=== PATIENT | male | born 1970 | race Caucasian/White ===

== ENCOUNTER 2018-08-25 20:43 | Inpatient (IN) | payer OTHER ==
[~2018-08-25] VITALS: Ht 182.8 cm; Wt 92.3 kg
--- NOTE | ~2018-08-25 | PR ---
[place], [place] PROGRESS NOTE NAME: JESSICA GALVIN UNIT #: [id number] ROOM: 421 DOCTOR: JAYCE SANCHEZ MD,SEAMUS BIRTHDATE: [birth year] DOS: 09/02/2018 PULMONARY CRITICAL CARE EVALUATION AND MANAGEMENT SUBJECTIVE: The patient remains on mechanical ventilator, has bronchoscopy done yesterday with a large volume of purulent secretion removed from the endobronchial tree. He has not been noted with any ongoing hemodynamic instability at the present time. The patient was continued 45% oxygen supplementation on the mechanical ventilator as well. The feeding was continued by NG tube, which seem to be well tolerated. Antibiotic was continued as well for the acute pneumonia management. The patient is currently intubated and sedated. The neuromuscular blocking agent was discontinued after completion 48 hours of duration. The oxygen requirement has been noted decreased, the PEEP was continued, 10 cm of water. OBJECTIVE: VITAL SIGNS: The vital signs of the patient, temperature is noted completely normal in the last 24 hours. The respiratory rate was recorded as 37-26. Heart rate of 92-104. The blood pressure of 130/90-135/108. Pulse oxygen saturation is recorded as 95% saturation on 45% oxygen. HEENT: On examination, the patient is currently intubated and remains on mechanical ventilator. Head was atraumatic. Eyes nonicterus. NECK: Supple. CARDIOVASCULAR SYSTEM: S1, S2 audible. LUNGS: Noted with crackles at the right lower lung. There was no wheezing. ABDOMEN: Soft, nontender. Bowel sounds present. EXTREMITIES: Noted without any significant edema. MUSCULOSKELETAL: Without any acute deformities. CENTRAL NERVOUS SYSTEM: The patient is currently sedated. LABORATORY DATA: CBC this morning, WBC count is 7.1, hemoglobin is 12.9, and platelet count is normal. The arterial blood gas this morning on 45% oxygen, pH of 7.48, pCO2 of 35, and pO2 of 123. The culture of the bronchial washing noted normal miya, final results are pending. Gram stain of the bronchial washing of yesterday, many white blood cells, moderate epithelial cells, no organisms seen. CMP this morning, BUN is normal, creatinine is normal, glucose is 112, and potassium is 3.3. Albumin is 2.5. Phosphorus remains normal. The AST and ALT was noted still abnormal, but improving from admission. IMPRESSION: 1. The patient with acute pneumonia with acute respiratory distress syndrome bilaterally, status post bronchoscopy. 2. The patient with alcohol dependence, alcohol withdrawal. 3. The patient with nicotine dependence. 4. Refeeding syndrome that has been resolving. 5. Mild hypokalemia. 6. The patient with overall debility certainly would be noted at the present time. 7. Mild respiratory alkalosis as well. [place], [place] PROGRESS NOTE NAME: JESSICA GALVIN UNIT #: [id number] ROOM: 421 DOCTOR: JAYCE SANCHEZ MD,SEAMUS BIRTHDATE: [birth year] PLAN OF MANAGEMENT: Continue sedation with use of the propofol. Supplementation of the electrolytes will be continued. Continue Neutra-Phos as the phosphorus level was noted currently normal for the current hypophosphatemia related to refeeding syndrome. Bronchodilator to be continued. Antibiotic spectrum will be changed based on all the culture results. Discontinuation of the IV fluid as well. Bronchodilators to be continued as well. Continue other ventilator bundle management as well. Decrease the oxygen supplementation at this time from 45% to 40% oxygen supplementation, weaning could be considered to be started from tomorrow. The respiratory rate will be also decreased. Other plan of management and care plan changes to be made based on progression of the illness. Oxygen supplementation will be started decreasing if the patient tolerated the current changes on the mechanical ventilation then tomorrow prior to the consideration for the weaning. Mental status assessment to be done with sedation vacation by the nursing staff. Total time in pulmonary critical care evaluation and management was 39 minutes. SEAMUS EDUARDO MD CM:PNTRANS [id number] SEAMUS SANCHEZ MD 10/19/18 0914 interface
--- NOTE | ~2018-08-25 | PR ---
[place], [place] PROGRESS NOTE NAME: JESSICA GALVIN UNIT #: [id number] ROOM: 421 DOCTOR: SEAMUS EDEN MD BIRTHDATE: [birth year] DOS: 09/06/2018 PULMONARY PROGRESS NOTE SUBJECTIVE: The patient independently seen and examined in [id number] encounter, history was confirmed. Physical examination performed. The labs were reviewed. Assessment and management today was personally completed. Note done by the medical appointment scheduler was approved as well. He has been noted comfortable on this setting this morning on the side of the bed. Denies any symptoms of coughing, sputum expectoration, chest pain, fever, or chills. Denies symptoms of hemoptysis. OBJECTIVE: VITAL SIGNS: Within normal temperature, respiratory rate 20, heart rate 87, blood pressure 135/70. Pulse oxygen saturation on room air was 100% saturation. HEENT: Head was atraumatic. Eyes nonicterus. NECK: Supple. CARDIOVASCULAR: S1, S2 audible. LUNGS: Without any wheezing or crackles. ABDOMEN: Soft, nontender. Bowel sounds present. EXTREMITIES: No acute change. LABORATORY DATA: BMP: Potassium 3.1, otherwise normal BMP. IMPRESSION: 1. The patient has been noted with progressive resolution of the acute respiratory failure. Currently, he does not require any oxygen supplementation. 2. History of alcohol withdrawal and delirium tremens, which has been already resolved. PLAN OF TREATMENT: No changes from the pulmonary standpoint at this time, the patient could be considered for discharge. Home setting whenever desired and agreed upon by the primary care physician. [place], [place] PROGRESS NOTE NAME: JESSICA GALVIN UNIT #: [id number] ROOM: 421 DOCTOR: SEAMUS EDEN MD BIRTHDATE: [birth year] SEAMUS EDUARDO MD CM:PNTRANS [id number] SEAMUS SANCHEZ MD 09/07/18 0011 interface
--- NOTE | ~2018-08-25 | PR ---
[place], [place] PROGRESS NOTE NAME: JESSICA GALVIN UNIT #: [id number] ROOM: 421 DOCTOR: LEONELA DE LA ROSA DO BIRTHDATE: [birth year] DOS: 09/06/2018 PULMONARY PROGRESS NOTE INTERVAL HISTORY: The patient states that he is doing much better. He is breathing much better. He thinks it is all your help and states that he will complete his rehabilitation and no longer drink alcohol. The patient denied any shortness of breath, chest pain, productive cough, fevers, or chills. OBJECTIVE: VITAL SIGNS: The patient's 97.9, pulse 87, respiratory rate 16, blood pressure 120/60. The patient is 100% on room air. HEENT: Normocephalic, atraumatic. Eyes nonicteric. NECK: Supple, nontender, trachea midline. CARDIOVASCULAR: S1, S2 audible, regular rate and rhythm. LUNGS: Clear to auscultation bilaterally. ABDOMEN: Soft, nontender. EXTREMITIES: No clubbing, cyanosis or edema. NEUROLOGIC: No focal neurologic deficits. Cranial nerves 2-12 grossly intact. ASSESSMENT: 1. Acute respiratory failure. 2. Gram-negative pneumonia. 3. Alcohol withdrawal. PLAN: Encourage ambulation. Continue bronchodilator therapy while the patient is inpatient. The patient could be discharged from pulmonary standpoint on 3 additional days of levofloxacin 750 mg. Quincy De La Rosa DO SEAMUS EDUARDO MD CM:JULES [phone] [id number] LEONELA DE LA ROSA DO 09/06/181944 interface
--- NOTE | ~2018-08-25 | PR ---
[place], [place] PROGRESS NOTE NAME: JESSICA GALVIN UNIT #: [id number] ROOM: [place] [address] DOCTOR: PHD MINISTERIO LEVINE BIRTHDATE: [birth year] DOS: 08/28/2018 SUMMARY: The patient is sedated and intubated. I will continue to follow and evaluate him once he is more appropriate. Savana Levine PhD CM:JULES [phone] PHD MINISTERIO LEVINE 08/29/18 1853 interface
--- NOTE | ~2018-08-25 | CON ---
[place], [place] REPORT OF CONSULTATION NAME: JESSICA GALVIN UNIT #: [id number] ROOM: [place] [address] DOCTOR: MIKAELA, PHD MINISTERIO BIRTHDATE: [birth year] DOS: 08/30/2018 The patient is intubated and is not able to be assessed. I have called the [facility] to pass this information along for Monday and coverage in case the patient improves before Monday when I return. Savana Levine, PhD CM:CONSTR:REPORT OF CONSULTATION 1622 08/30/18 2253 interface
--- NOTE | ~2018-08-25 | PR ---
[place], [place] PROGRESS NOTE NAME: JESSICA GALVIN UNIT #: [id number] ROOM: 421 DOCTOR: JAYCE SANCHEZ MDSEAMUS BIRTHDATE: [birth year] DOS: 08/29/2018 PULMONARY CRITICAL CARE MANAGEMENT SUBJECTIVE: The patient was seen on the date of 08/29/2018. He has been noted with marked decline in his respiratory status in the last 24 hours. He started with having hypotension gradually with severe oxygen desaturation and also noted tachycardia and temperature elevation started last evening. The patient was currently noted with significant tachypnea. The oxygen requirement had to be increased up to 80% as the patient was assessed this morning at about 8:45 a.m. He has been sedated with intravenous Diprivan. The patient has been just ordered the antibiotic by the medical data entry clerk this morning, which has not been administered. He has been also noted increased secretion production with endotracheal tube, which is described to me by the nursing staff. REVIEW OF SYSTEMS: Certainly could not be done. The patient has been getting intravenous fluids at 125 mL, normal saline per hour in the last few hours. Blood pressure systolic noted about 88 this morning. PHYSICAL EXAMINATION: GENERAL: The patient is currently intubated, noted on mechanical ventilator, noted with tachypnea, respiratory rate about 30 beats per minute, assist control, volume control, mechanical ventilation, PEEP of 5 cm of water at the time of the assessment. OBJECTIVE: VITAL SIGNS: For the patient, which recorded blood pressure 86/60-113/70 earlier. The temperature of the patient noted as 101 degrees Fahrenheit. The respiratory rate of the patient range between 26-18, heart rate of 130-114, sinus tachycardia. Intake in the last 24 hours was 2.130 liters, the output was noted at 500 mL total in 24 hours. The last 8 hours output was only 150 mL. The pulse oxygen saturation was recorded as 80 percent saturation of oxygen. HEENT: Examination shows head was atraumatic. Eyes nonicterus. NECK: Supple. CARDIOVASCULAR: The patient currently intubated, orogastric tube. Head was atraumatic. Eyes nonicterus. NECK: Supple. CARDIOVASCULAR: S1, S2 is audible. LUNGS: The patient was noted with decreased breath sounds in the lungs bilaterally with crackles of the lungs. ABDOMEN: Soft, nontender. Bowel sounds present. EXTREMITIES: Noted without any edema. MUSCULOSKELETAL: Without any acute deformities. SKIN: No lesions or rashes. CENTRAL NERVOUS SYSTEM: The patient is currently sedated. LABORATORY DATA: CMP on 08/29/2018, BUN of 19, creatinine normal, glucose 123, potassium 3.1. AST and ALT still noted mildly elevated. CBC of the patient this morning, WBC count normal, hemoglobin 14, hematocrit 45.0, platelet count were normal. The culture of the endotracheal aspirate 513, normal miya. [place], [place] PROGRESS NOTE NAME: JESSICA GALVIN UNIT #: [id number] ROOM: 421 DOCTOR: JAYCE SANCHEZ MD,[facility] BIRTHDATE: [birth year] Arterial blood gas this morning at 8 o'clock, pH of 7.38, pCO2 of 41, pO2 82.4. Chest x-ray that was completed review for this patient shows evidence of pulmonary infiltration noted significantly in the right lung. IMPRESSION: 1. The patient with acute pneumonia that has occurred. The patient was intubated, noted on mechanical ventilation within the last 24 hours with acute severe sepsis as considered. Possibility of ARDS at this time cannot be completely excluded and remains in consideration. 2. The patient with a history of alcohol use as well. 3. The patient with elevation of temperature as well. 4. Abnormal LFTs as well. 5. History of illicit drug use as well. 6. Electrolyte imbalance. 7. Hyperkalemia would be considered possibility of refeeding syndrome. PLAN OF MANAGEMENT: The patient has been started immediately on intravenous fluids on 2 liters of intravenous fluid will be given for 2 hours monitoring the urinary output and the perfusion to other organ and the blood pressure. If necessary, vasopressor will be added to treatment Levophed would be the drug of choice. Continue sedation at the present time. Buckley cultures, the patient has been ordered. Strategy for the patient on mechanical ventilation will be changed to further volume, lung-protective strategy over the ARG management protocol. Monitoring of the oxygenation as well with continuation of the DVT prophylaxis and other ventilator bundle management. Nutrition support for the patient will be continued. Management of the refeeding syndrome with supplementation of electrolytes as well. Multilumen catheter will be ordered to be inserted for the use of vasopressor if becomes necessary. The patient will be started on IV vancomycin and Zosyn for the hospital-acquired infection and possible consideration of ventilator-associated pneumonia until the culture results will be known and de-escalation will be done accordingly. Usual care or oral therapy, plan of management, additional treatment changes will be ordered accordingly. Pulmonary critical care evaluation and management, total time was 40 minutes. [place], [place] PROGRESS NOTE NAME: JESSICA GALVIN UNIT #: [id number] ROOM: 421 DOCTOR: SEAMUS EDEN MD BIRTHDATE: [birth year] SEAMUS EDUARDO MD CM:JULES [id number] SEAMUS SANCEHZ MD 10/19/18 0909 interface
--- NOTE | ~2018-08-25 | EKG ---
[place], [place] ELECTROCARDIOGRAM REPORT NAME: JESSICA GALVIN UNIT #: [id number] ROOM: [place] [address] DOCTOR: AFTAB DRAFT REPORT BIRTHDATE: [birth year] [facility] Test Date: 2018-08-31 Test Time: 11:18:15 Pat Name: JESSICA GALVIN Department: Room: [place] [address] 1 Gender: M Code Enforcement Supervisor: Sariah Blunt : 1970 Requested By: SEAMUS SANCHEZ Order Number: [id number] Reading MD: Seamus Saucedo MD Measurements Intervals [place] Rate: 104 P: 83 NC: 137 QRS: 72 QRSD: 87 T: 42 QT: 332 QTc: 437 Interpretive Statements Sinus tachycardia Borderline low voltage, extremity leads Compared to ECG 08/25/2018 21:38:50 Myocardial infarct finding no longer present Electronically Signed On 09-01-2018 8:52:18 PDT by Seamsu Saucedo MD CM:EKGRPT:ELECTROCARDIOGRAM REPORT [id number] SEAMUS SNACHEZ MD EPIPHANY DRAFT REPORT SEAMUS SANCHEZ MD
--- NOTE | ~2018-08-25 | PR ---
[place], [place] PROGRESS NOTE NAME: JESSICA GALVIN UNIT #: [id number] ROOM: [place] [address] DOCTOR: JAYCE SANCHEZ MD,SEAMUS BIRTHDATE: [birth year] DOS: 08/30/2018 ADDENDUM PLAN OF TREATMENT: High-riding endotracheal tube was noted, which was advanced to about 4 cm to keep at the appropriate level. SEAMUS EDUARDO MD CM:PNTRANS [id number] [phone] SEAMUS SANCHEZ MD 08/31/18 1026 MARLO VARMA MIS.R
--- NOTE | ~2018-08-25 | EKG ---
[place], [place] ELECTROCARDIOGRAM REPORT NAME: JESSICA GALVIN UNIT #: [id number] ROOM: [place] [address] DOCTOR: AFTAB DRAFT REPORT BIRTHDATE: [birth year] [facility] Test Date: 2018-08-25 Test Time: 21:38:50 Pat Name: JESSICA GALVIN Department: Room: [place] [address] Gender: M Mobility Developer: Francisco Medellin : 1970 Requested By: JOHN PAUL JONES Order Number: [id number] Reading MD: Alyssa Pitts MD Measurements Intervals [place] Rate: 117 P: 60 PA: 146 QRS: 67 QRSD: 81 T: 31 QT: 333 QTc: 465 Interpretive Statements Sinus tachycardia Low voltage, extremity leads Probable anteroseptal infarct, old Electronically Signed On 08-27-2018 14:41:52 PDT by Alyssa Pitts MD CM:EKGRPT:ELECTROCARDIOGRAM REPORT [id number] JOHN PAUL JONES DO EPIPHCHRISTIANO DRAFT REPORT JOHN PAUL JONES DO
--- NOTE | ~2018-08-25 | CON ---
[place], [place] REPORT OF CONSULTATION NAME: JESSICA GALVIN UNIT #: [id number] ROOM: [place] [address] DOCTOR: PHD MINISTERIO LEVINE BIRTHDATE: [birth year] DOS: 09/04/2018 HISTORY OF PRESENT ILLNESS: The patient is a 48-year-old male, referred by the hospitalist with concerns for suicidal ideation. The patient has a history of alcohol abuse. He is homeless and not . He does not have any children. He is drinking about a fifth of vodka daily. He started when he was 15 and his longest period of sobriety is 10 months. He has participated in several inpatient treatment programs in the past and is currently undergoing alcohol counseling at [facility] and also follows with a counselor and psychiatrist through [facility]. He denies illegal drug use. PAST MEDICAL HISTORY: Alcohol dependence, nicotine dependence, hypertension, GERD, hyperchloremia, insomnia, macrocytosis without anemia, obesity, mood disorder, prediabetes and sinus tachycardia. MEDICATIONS: Haldol, Geodon, Diprivan, Ventolin, Protonix, Seroquel, Desyrel, Lamictal, folic acid, thiamine, Theragran, Lovenox, Zofran, Dulcolax, Senokot, Imodium, nicotine, Motrin, Tylenol, Vistaril, Bentyl, Robaxin and Zosyn. NEUROLOGIC: The patient was lying in bed in no apparent distress. He was awake, alert and oriented to person, place and time. He can name the current president and the past president. Mood was depressed and affect was restricted in range. He firmly denied suicidal and homicidal ideation, plan, and intent. He states that he was not trying to kill himself when he was drinking prior to admission. He states that the severity of his medical decline was a "wakeup call" and he is very treatment-motivated at this time. Speech and language are within normal limits conversationally. Thought process was goal directed. Thought content was negative for hallucinations and delusions. Insight and judgment appeared fair. The patient apparently had a bed waiting for him at [facility] for inpatient alcohol treatment when he left the Emergency Room against medical advice and drank. The patient is hoping to continue to follow with [facility]. His parents are also hoping that he can follow up somewhere in the [facility] and then bring him home, will send to [place] once he completes the treatment program. DIAGNOSES: Alcohol use disorder, bipolar disorder. RECOMMENDATIONS: The patient does not appear to be a current risk to himself. He convincingly denied suicidal ideation. He states that he wants to pursue inpatient alcohol treatment, especially given how severe his withdrawal was during this hospitalization. Thank you very much for this consultation. [place], [place] REPORT OF CONSULTATION NAME: JESSICA GALVIN UNIT #: [id number] ROOM: [place] [address] DOCTOR: MIKAELA PHD MINISTERIO BIRTHDATE: [birth year] Savana Levine, PhD CM:CONSTR:REPORT OF CONSULTATION 1644 09/05/18 0320 interface
--- NOTE | ~2018-08-25 | PR ---
[place], [place] PROGRESS NOTE NAME: JESSICA GALVIN UNIT #: [id number] ROOM: [place] [address] DOCTOR: JAYCE SANCHEZ MD,SEAMUS BIRTHDATE: [birth year] DOS: 08/30/2018 PULMONARY PROGRESS NOTE SUBJECTIVE: The patient was seen and examined on the date of 08/30/2018 in Intensive Care Unit, remains intubated. The patient has been given intervenous fluids and was noted with improvement in hypertension with the fluid, did not require any vasopressor therapy. His urinary output was also noted with gradual improvement as well. The feeding was continued, which was well tolerated, assist control, volume control, mechanical ventilation was noted. He has been noted tachypnea and distress at times with current mechanical ventilation. PEEP was continued at 12 cm water from yesterday. Oxygen saturation was noted recorded including oxygen supplementation this morning. He was continued with the tube feeding as well as atrophic feeding. OBJECTIVE: GENERAL: Sedated, intravenous Diprivan high dose. Versed was also given p.r.n. A 48-year-old white male patient currently intubated, noted on mechanical ventilation. Orogastric tube is in place. VITAL SIGNS: For the patient, highest temperature 101.8 degrees Fahrenheit, respiratory rate 24-34, heart rate 108-119, blood pressure 136/82-112/68. Intake was a total of 6.22 liters, output 1075 Ml, positive 5.149 liters. Pulse oxygen saturation 94% saturation noted. HEENT: Examination shows head was atraumatic. Eyes nonicterus. NECK: Supple. CARDIOVASCULAR: S1, S2 is audible. LUNGS: Noted patient with decreased breath sounds in the lungs in general. There was no wheezing heard. ABDOMEN: Soft, nontender, bowel sounds present. EXTREMITIES: Noted with mild edema. MUSCULOSKELETAL: Without any acute deformities. CENTRAL NERVOUS SYSTEM: At this time, is sedated. He was also started on IV Diprivan drip and also getting the intravenous propofol. LABORATORY DATA: Laboratory data, which was reviewed. Arterial blood gas that was done at 10:30, pH of 7.35, pCO2 of 38, pO2 88 on 80% oxygen. CPK was noted as normal yesterday. Arterial blood gas repeated yesterday afternoon, pH of 7.34, pCO2 of 37, pO2 105 on 80% oxygen with PEEP increased to 12 cm water. CMP of the patient this morning, glucose 160, BUN normal, creatinine was normal. AST, ALT was still noted abnormal, but gradual reduction noted. CBC this morning, WBC count 10.2, hemoglobin 12.6, platelet count 123,000. The endotracheal aspirate, Gram stain, many white blood cells, many gram-negative bacilli, few gram-positive cocci in pairs and chains. The patient normal miya preliminary. Arterial blood gas, pH of 7.37, pCO2 of 36, pO2 90.2 on 65% oxygen. The chest x-ray done this morning shows high riding endotracheal tube about 7-8 cm above the mitchel level. Interstitial marking bilateral lower lobe infiltration was seen. Arterial blood gas repeated after additional changes in the mechanical ventilation done, pH of 7.22, pCO2 of 59, pO2 of 72.8. IMPRESSION: [facility], [place] PROGRESS NOTE NAME: JESSICA GALVIN UNIT #: [id number] ROOM: [place] [address] DOCTOR[facility] [birth year] 1. Acute severe sepsis at this time. 2. Acute pneumonia, which would be considered as hospital-acquired pneumonia, possibly related to the aspiration as well and cannot be characterized as a ventilator-associated pneumonia as the mechanical ventilator by definition done less than 24 hours. 3. Abnormal LFTs related to his chronic alcohol use. 4. Cord withdrawal. 5. The patient requiring high amount of sedation from different medications as well. 6. ARDS was also noted bilateral pulmonary infiltration by definition. 7. High oxygen requirement as well. 8. Refeeding syndrome as well, which has been corrected with electrolyte imbalance. PLAN OF MANAGEMENT: The patient will be continued on broad spectrum intravenous antibiotic and culture results are known. Intravenous fluids use. Given 40 mg IV Lasix. Bedside adjustment of mechanical ventilation done for different modes of mechanical ventilation. Increasing the incremental PEEP up to 24 cm water. The patient noted significant shunting and the best PEEP noted about 10-12 cm of water, which will be continued with oxygen supplementation 70% that was gradually decreased with the repeat arterial blood gases. Arterial line placement was ordered as well. Bronchodilator to be continued. 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 The low dose of Diprivan and low dose of Versed could be used. Continue other therapy and plan of management as well. Monitor culture results. Other additional treatment changes will be made based on progression of the illness. Usual care, other therapy, plan of management, care plan of treatment and other therapies and care. Usual medical milieu therapy, plan of management. Total time spent for the patient in pulmonary critical care management at the bedside for his ARDS, respiratory failure and others, was 90 minutes. PLAN OF TREATMENT: High-riding endotracheal tube was noted, which was advanced to about 4 cm to keep at the appropriate level. [place], [place] PROGRESS NOTE NAME: JESSICA GALVIN UNIT #: [id number] ROOM: [place] [address] DOCTOR: SEAMUS EDEN MD BIRTHDATE: [birth year] SEAMUS EDUARDO MD CM:PNTRANS [phone] SEAMUS SANCHEZ MD 08/31/18 1031 interface
--- NOTE | ~2018-08-25 | CON ---
[place], [place] REPORT OF CONSULTATION NAME: JESSICA GALVIN UNIT #: [id number] ROOM: [place] [address] DOCTOR: MIKAELA, PHD MINISTERIO BIRTHDATE: [birth year] DOS: 08/27/2018 The patient was not available for an evaluation due to being intubated. I will follow up with him tomorrow. Savana Levine, PhD CM:CONSTR:REPORT OF CONSULTATION 1719 08/28/18 0353 interface
--- NOTE | ~2018-08-25 | PR ---
[place], [place] PROGRESS NOTE NAME: JESSICA GALVIN UNIT #: [id number] ROOM: 421 DOCTOR: TD MARIEDIANNENATHAN BIRTHDATE: [birth year] DOS: 09/05/2018 PULMONARY PROGRESS NOTE SUBJECTIVE: The patient states that he feels much better today. The patient was moved out this morning on to the general medical floor. The patient states that he is able to walk around the room. The patient states that his breathing is at baseline. The patient states that he has plans to go to his mother's house. The patient states that he will continue to not drink alcohol. The patient denies any chest pain, shortness of breath, nausea or vomiting. OBJECTIVE: VITAL SIGNS: Temperature is 98.8, pulse 87, respiratory rate 20, blood pressure is 118/66, pulse ox is 93% on room air. HEENT: Normocephalic, atraumatic. Eyes nonicteric. NECK: Supple, nontender. Right IJ is present. CARDIOVASCULAR: S1, S2 audible. LUNGS: Clear to auscultation bilaterally. ABDOMEN: Soft, nontender, bowel sounds present. EXTREMITIES: No acute changes. MUSCULOSKELETAL: Without acute deformities. CENTRAL NERVOUS SYSTEM: No focal neurologic deficits. Cranial nerves 2-12 grossly intact. The patient is able to ambulate without difficulty. SKIN: No lesions or rashes. LABORATORY DATA: The patient did not have labs today. ASSESSMENT: 1. Improving acute hypoxic respiratory failure. 2. Resolution of alcohol withdrawal. 3. Resolving acute gram-negative pneumonia secondary to aspiration. 4. Resolution of tachycardia. 5. Morbid obesity. 6. Tobacco abuse. 7. Abnormal LFTs with transaminitis, most likely secondary to chronic alcohol abuse. PLAN OF MANAGEMENT: The patient is to have the right IJ removed today. This will be removed by the nurses. The patient should be encouraged to ambulate. The patient's antibiotics will all be discontinued and the patient will be started on p.o. Levaquin 750 mg daily. The patient will be continued on this today and tomorrow while inpatient. The patient will be discharged on 3 additional days of p.o. Levaquin. The patient is stable from pulmonary standpoint for discharge tomorrow. Quincy De La Rosa DO [place], [place] PROGRESS NOTE NAME: JESSICA GALVIN Vitor UNIT #: [id number] ROOM: [place] DOCTOR: LEONELA DE LA ROSA DO BIRTHDATE: [birth year] SEAMUS EDUARDO MD CM:PNDEBORA [id number] LEONELA DE LA ROSA DO 09/05/18 1740 interface
--- NOTE | ~2018-08-25 | PR ---
[place], [place] PROGRESS NOTE NAME: JESSICA GALVIN UNIT #: [id number] ROOM: 421 DOCTOR: JAYCE SANCHEZ MD,SEAMUS BIRTHDATE: [birth year] DOS: 09/07/2018 PULMONARY PROGRESS NOTE SUBJECTIVE: The patient was independently seen and examined in [id number] encounter, history was confirmed. Physical examination performed. Labs were reviewed. Note done by the medical records assistant was approved. The patient's assessment and management today was personally completed. The patient has been currently noted comfortable at this time, resting, sitting on the chair this morning in his room. He was not reporting any symptoms of coughing, chest pain, shortness of breath, fever, or chills. Denies symptoms of hemoptysis. OBJECTIVE: VITAL SIGNS: For the patient, which are recorded showed the temperature noted as normal, respiratory rate 20, heart rate of 97, blood pressure 118/84. Pulse oxygen saturation recorded as 98% at rest on room air. HEENT: Examination shows head was atraumatic. Eyes nonicterus. NECK: Supple. CARDIOVASCULAR: S1, S2 is audible. LUNGS: The patient was noted without any wheeze or crackles. ABDOMEN: Soft, nontender. Bowel sounds present. EXTREMITIES: Noted without any acute edema. MUSCULOSKELETAL: The patient noted without any acute deformities. IMPRESSION: 1. The patient with resolved acute respiratory failure. 2. Resolution of acute pneumonia, noted progressively and gradually. 3. Resolution of alcohol withdrawal. PLAN OF TREATMENT: No change in pulmonary standpoint. Discharge planning per primary care attending. No change in treatment needs to be done today. SEAMUS EDUARDO MD CM:PNTRANS [phone] SEAMUS SANCHEZ MD 10/19/18 0915 interface
--- NOTE | ~2018-08-25 | PR ---
[place], [place] PROGRESS NOTE NAME: JESSICA GALVIN UNIT #: [id number] ROOM: 421 DOCTOR: JAYCE SANCHEZ MD,SEAMUS BIRTHDATE: [birth year] DOS: 08/31/2018 PULMONARY AND CRITICAL CARE EVALUATION AND MANAGEMENT SUBJECTIVE: The patient remains on mechanical ventilator, stable. The mechanical ventilation is continued with oxygen supplementation, which has been used at this time as 60% oxygen on mechanical ventilator and saturating well. Low-grade fever noted. He has been noted with a moderate amount of endotracheal secretion, which was suctioned out frequently by the nursing staff and respiratory staff. He has been noted without any acute hemodynamic instability. Mild sinus tachycardia noted as well with fever, which is noted with rectal temperature elevation. He has been continued on intravenous antibiotic, broad spectrum. The cultures were monitored. The feeding was continued, tolerated with PulmoCare. OBJECTIVE: VITAL SIGNS: Which were recorded showed the temperature was noted as 99.3 degrees Fahrenheit-101.4 degrees Fahrenheit, respiratory rate of 34-28, heart rate of 116-122, blood pressure 105/65-113/70. Pulse oxygen saturation recorded as 94%-99% saturation on 60% oxygen. HEENT: Examination shows head is atraumatic. Eyes nonicterus. NECK: Supple. CARDIOVASCULAR: S1 and S2 audible. LUNGS: Noted with moderate decreased breaths. There were no wheezing or crackles. ABDOMEN: Soft, nontender. Bowel sounds present. EXTREMITIES: Noted without any significant edema. MUSCULOSKELETAL: Without acute deformities. CENTRAL NERVOUS SYSTEM: At this time, the patient is paralyzed. LABORATORY DATA: Arterial blood gas this morning - pH of 7.38, pCO2 of 44.6, pO2 of 76.9. CBC - WBC count of 9.6, hemoglobin 11.3, hematocrit 37.5, platelet count 146,000. Magnesium was noted as 2.2, phosphorus 1.9. CMP that is done this morning noted as glucose 125, BUN and creatinine normal, potassium 3.4, AST and ALT still noted abnormal but slowly improving. CBC - WBC count 9.6, hemoglobin 11.8, hematocrit 37.5. DIAGNOSTIC DATA: Chest x-ray: Endotracheal tube is noted in appropriate place at this time, NG tube in the stomach, lower lobe area of consolidation and infiltration seen. IMPRESSION: 1. The patient with acute respiratory distress syndrome with acute pneumonia, which is hospital acquired. 2. The patient with refeeding syndrome with electrolyte imbalance, hypophosphatemia and hypokalemia. 3. The patient with alcohol withdrawal history as well. 4. Sinus tachycardia as well. 5. Excessive secretion production from the endotracheal tube. [place], [place] PROGRESS NOTE NAME: JESSICA GALVIN UNIT #: [id number] ROOM: 421 DOCTOR: SEAMUS EDEN MD BIRTHDATE: [birth year] PLAN OF MANAGEMENT: Supplementation of phosphorus will be started from the orogastric tube. The patient will be planned for bronchoscopy tomorrow morning. No changes in antibiotic. Follow up the culture results of endotracheal aspirate as well. Additional treatment changes will be done based on progression of the illness. Culture has not been updated today as yet from the endotracheal aspirate. Deescalation of antibiotic with the available culture results. Endotracheal tube, which was noted high riding already corrected. Continue all the ventilator bundle management. Paralytic agents will be ending tomorrow after 48 hours for the ARDS management. Total time in pulmonary and critical care evaluation and management was 35 minutes. SEAMUS EDUARDO MD CM:PNTRANS [phone] SEAMUS SANCHEZ MD 10/19/18 0911 interface
--- NOTE | ~2018-08-25 | PR ---
[place], [place] PROGRESS NOTE NAME: JESSICA GALVIN UNIT #: [id number] ROOM: 421 DOCTOR: SEAMUS EDEN MD BIRTHDATE: [birth year] DOS: 09/05/2018 PULMONARY PROGRESS NOTE SUBJECTIVE: The patient independently seen and examined, [id number] encounter, history was confirmed. Physical examination performed. Labs were reviewed. Note done by the emergency medical technician/driver was approved as well. The patient assessment and managed for today's visit were personally completed. He has been doing very well at this time, was transferred to the medical floor at this time. He has been currently noted without any acute distress. Denies symptoms of coughing, chest pain, sputum expectoration, ambulated at his own will intermittently. There were no symptoms of chest pain. There was no fever. OBJECTIVE: VITAL SIGNS: For the patient, normal temperature, respiratory rate 20, heart rate 87, blood pressure 118/66. Pulse oxygen saturation recorded as 93% saturation at rest on room air. HEENT: Examination shows head was atraumatic. Eyes nonicterus. NECK: Supple. CARDIOVASCULAR: S1, S2 is audible. LUNGS: The patient was noted clear bilaterally. ABDOMEN: Soft, nontender. Bowel sounds present. EXTREMITIES: No acute change. IMPRESSION: 1. Progressive and gradual resolution of the acute respiratory failure at the present time, not needing any oxygen supplementation. 2. Resolving acute gram-negative pneumonia, hospital-acquired pneumonia. 3. Resolution of sepsis. 4. History of chronic alcohol use with alcohol withdrawal, which has been improved. PLAN OF MANAGEMENT: Encouraged the patient continue ambulation, continue bronchodilator therapy, plan of management as in progress. DISCHARGE PLANNING: The patient could be started potential discharge in the morning from the pulmonary standpoint. [place], [place] PROGRESS NOTE NAME: JESSICA GALVIN UNIT #: [id number] ROOM: 421 DOCTOR: SEAMUS EDEN MD BIRTHDATE: [birth year] SEAMUS EDUARDO MD CM:PNTRANS [phone] SEAMUS SANCHEZ MD 09/05/18 1529 interface
--- NOTE | ~2018-08-25 | PR ---
[place], [place] PROGRESS NOTE NAME: JESSICA GALVIN UNIT #: [id number] ROOM: 421 DOCTOR: JAYCE SANCHEZ MD,SEAMUS BIRTHDATE: [birth year] DOS: 09/01/2018 PULMONARY CRITICAL CARE EVALUATION AND MANAGEMENT SUBJECTIVE: The patient remains on mechanical ventilator, still paralyzed. The paralysis will be discontinued this morning after 48 hours of completion. The oxygen supplementation continued; on 60% oxygen, the patient has 55% oxygen. He has not been noted any acute hemodynamic instability otherwise. His parents have arrived to see the patient. He has been also receiving the IV Diprivan. He was planned for bronchoscopy, done today with similar amount of thick secretion, which was suctioned out intermittently by the nursing and the respiratory staff. Feeding tube temporarily. OBJECTIVE: VITAL SIGNS: The vital signs of the patient, which have recorded, temperature is noted low grade 100 degrees Fahrenheit; later, the patient noted afebrile; respiratory rate of 19-18, heart rate of 100-111, mild sinus tachycardia; blood pressure of 159/100-140/96. Pulse oxygen saturation was recorded as 98% saturation. HEENT: On examination, the patient remained orally intubated. Orogastric tube is in place. NECK: Supple. CARDIOVASCULAR SYSTEM: S1, S2 is audible. LUNGS: Noted with decreased breaths in the lungs bilaterally. ABDOMEN: Soft, nontender. Bowel sounds present. EXTREMITIES: Noted with mild peripheral edema. CENTRAL NERVOUS SYSTEM: Currently, the patient is paralyzed. VISIBLE SKIN: No lesions or rashes. LABORATORY DATA: Arterial blood gas this morning, pH of 7.41, pCO2 of 41, and pO2 of 90 on 55% oxygen. Endotracheal aspirate culture repeated noted heavy gram-negative bacilli, nonviable upon further assessment for the sensitivity and further identification could not be performed because of that reason. CBC: WBC count was 6.6, hemoglobin was 12, and platelet count was normal. CMP of the patient this morning, BUN was normal, creatinine was normal. Sodium is 146 and potassium is 3.4. AST, ALT still remained somewhat elevated. PT and PTT noted as normal. Platelet function assay, was noted as normal. IMAGING DATA: Chest x-ray that was done this morning showed basilar area of infiltration. IMPRESSION: 1. The patient has been currently noted with acute pneumonia with acute respiratory distress syndrome. Excessive secretion production. 2. History of chronic alcohol dependence with alcohol detoxification completed on this hospitalization. 3. Previous change in mental status. 4. Mild hypernatremia. [place], [place] PROGRESS NOTE NAME: JESSICA GALVIN UNIT #: [id number] ROOM: 421 DOCTOR: JAYCE SANCHEZ MD,SEAMUS BIRTHDATE: [birth year] 5. Mild hypokalemia also noted. 6. Refeeding syndrome. PLAN OF MANAGEMENT: Proceed with fibrobronchoscopy. Feeding will resume after the bronchoscopy. The paralytic agent will be discontinued. Continue the sedation after that. The oxygen supplementation has been decreased from 55% to 45% saturation. Monitor pulse ox saturation, maintain pulse ox 90% or greater. Based on the current culture result; certainly, vancomycin will not be needed. Continue IV Zosyn for the gram-negative coverage. Further modification in the antibiotic will be made after the bronchoscopy culture, which will be obtained today. Total time in pulmonary critical care evaluation and management was 45 minutes. SEAMUS EDUARDO MD CM:PNTRANS [phone] SEAMUS SANCHEZ MD 10/19/18 0912 interface
--- NOTE | ~2018-08-25 | PR ---
[place], [place] PROGRESS NOTE NAME: JESSICA GALVIN UNIT #: [id number] ROOM: 421 DOCTOR: JAYCE SANCHEZ MD,SEAMUS BIRTHDATE: [birth year] DOS: 09/03/2018 PULMONARY CRITICAL CARE EVALUATION AND MANAGEMENT SUBJECTIVE: The patient has been noted comfortable at this time, resting on the bed, sedated with IV propofol. He has been also getting Versed at times for sedation purposes. He has not been noted any hemodynamic instability. The patient was continued on 45% oxygen supplementation decreased to 40% this morning. He remains on assist control, volume control, and mechanical ventilation as well. He has not been noted with any acute hemodynamic instability. Tachycardia also markedly resolved and improved. Feeding has continued. OBJECTIVE: VITAL SIGNS: For the patient, which have been recorded for this shows temperature normal. Respiratory rate of 18-23, heart rate 87-85, blood pressure 116/75-130/94. Pulse oxygen saturation recorded on 40% oxygen supplementation 97% saturation. HEENT: Examination shows head was atraumatic. The patient was orally intubated. Endotracheal tube is in place. NECK: Supple. CARDIOVASCULAR: S1, S2 audible. LUNGS: Noted with [id number] decreased breath sounds in the lower portion of the lungs bilaterally. ABDOMEN: Soft, nontender, bowel sounds present. EXTREMITIES: Show minimal edema. VISIBLE SKIN: No lesions or rashes. MUSCULOSKELETAL: Without acute deformities. CENTRAL NERVOUS SYSTEM: Essentially noted at this time, the patient is sedated, but noted with improvement in mental status with sedation vacation yesterday. LABORATORY DATA: CMP today, BUN normal, creatinine was normal. Potassium was 3.0. Albumin 2.5, AST 80, ALT 112. CBC on 09/03/2018, WBC count 6.3, hemoglobin 12, hematocrit 35.9, platelet count 233,000. IMPRESSION: 1. The patient with resolving acute respiratory distress syndrome as well as improving acute pneumonia at this time with gram-negative infection. The cultures of the bronchial washing were noted normal miay at this time previously noted as gram-negative bacilli, nonviable for endotracheal aspirate. 2. Acute alcohol withdrawal as well, which has been resolved at this time. 3. Resolution of tachycardia. PLAN OF MANAGEMENT: The patient will be continued on IV Zosyn, which will be ordered. He will be started on CPAP of 5, pressure support of 10 after discontinuing sedation once the patient noted awake. Arterial blood gases done 2 hours with the use of the CPAP mode of mechanical ventilation tolerated for weaning. After that the patient will be assessed for possible liberation from the mechanical ventilator. The patient does get liberate. The NG tube will be inserted for the feeding. Oral feeding will be placed on hold until resolving [place], [place] PROGRESS NOTE NAME: JESSICA GALVIN UNIT #: [id number] ROOM: [facility] DOCTOR: JAYCE SANCHEZ MD,SEAMUS BIRTHDATE: [birth year] accurately to assess to prevent aspiration. Continue other ventilator bundle management, other therapy, plan and management. Supplementation of electrolytes. Usual care. Total time in pulmonary and critical care evaluation and management was 37 minutes. SEAMUS EDUARDO MD CM:JULES [phone] SEAMUS SANCHEZ MD 10/19/18 0914 interface
--- NOTE | ~2018-08-25 | CON ---
[place], [place] REPORT OF CONSULTATION NAME: JESSICA GALVIN UNIT #: [id number] ROOM: 421 DOCTOR: JAYCE SANCHEZ MDSEAMUS BIRTHDATE: [birth year] DOS: 08/28/2018 PULMONARY CRITICAL CARE EVALUATION AND MANAGEMENT CONSULTATION REQUESTED BY: Hospital services. REASON FOR CONSULTATION: For the assessment of current acute respiratory failure. HISTORY OF PRESENT ILLNESS: This is a 48-year-old white male patient, who was admitted to the hospital under the hospitalist services on 08/25/2018. The patient presented to the hospital, symptoms reported for nausea and vomiting with the patient. He has been admitted in the hospital and left against medical advice and readmitted to the hospital. The patient was also noted with history of alcohol use and on tobacco use as well. He admits drinking alcohol from the dispenser for this as well and the hand tip length checker for the patient used for the sensitizing of the hands. He has been noted alcohol withdrawal for a few days. The patient has been noted duration with increased sedation requiring intubation and mechanical ventilation. The patient was intubated, started on mechanical ventilation yesterday effectively. He has been continued on assist control, volume control, mechanical ventilation post-intubation gradually decreased. Mechanical ventilator changes made for the patient based on the need and arterial blood gases assessment. He has not been noted excessive secretion production from the endotracheal tube. He has been noted with sinus tachycardia, but no other major hemodynamic instability noted this morning of assessment. REVIEW OF SYSTEMS: Could not be completed since the patient is intubated, noted on mechanical ventilation. PAST MEDICAL HISTORY: 1. Reported history of chronic alcohol dependence. 2. Essential hypertension. 3. Nicotine dependence. 4. Gastroesophageal reflux. 5. Mood disorder. 6. Moderate obesity. PAST SURGICAL HISTORY: Reported with the hernia repair. SOCIAL HISTORY: The patient noted tobacco use, quantity for the patient duration was unknown. Denies history of alcohol use was also reported. No history of illicit drug use. FAMILY HISTORY: Both parents was reported as living. MEDICATIONS: Medication from home were listed as Ventolin HFA, Lamictal, omeprazole and Seroquel CURRENT MEDICATIONS: Administered for the patient during this hospitalization [place], [place] REPORT OF CONSULTATION NAME: JESSICA GALVIN UNIT #: [id number] ROOM: [facility] DOCTOR: JAYCE SANCHEZ MD,SEAMUS BIRTHDATE: [birth year] Protonix intravenously, Seroquel, trazodone, sulfate with nebulizer, Lamictal, folic acid, thiamine, multivitamin, Lovenox for DVT prophylaxis, Zofran p.r.n. use, nicotine replacement patches, hydroxyzine p.r.n. use, IV Ativan, chlorhexidine rinse, IV propofol, midazolam p.r.n. 5 mg q. 1 hour p.r.n. for sedation management or agitation management. DRUG ALLERGIES: The patient noted as no known drug allergies. PHYSICAL EXAMINATION: GENERAL: This is a 48-year-old male patient noted well-developed, well-nourished for his age. The patient currently intubated on mechanical ventilator, height of 6 feet, weight of 203 pounds, BMI 27. VITAL SIGNS: For the patient, which has been recorded shows a temperature recorded as normal. Rectal temperature of 100.2 degrees Fahrenheit, respiratory rate of 18-16, heart rate of 115-117, blood pressure 119/86-96/65. Pulse oxygen saturation recorded as 97, percent saturation 30% oxygen. HEENT: Head was atraumatic. Eyes nonicterus. NECK: Supple. The patient is intubated. CARDIOVASCULAR SYSTEM: S1, S2 is audible. LUNGS: The patient was noted clear. Wheezing clear of any wheezing or crackles. ABDOMEN: Soft, nontender. Bowel sounds present. EXTREMITIES: No acute change. MUSCULOSKELETAL: Without any obvious gross deformities. SKIN: No lesions or rashes. CENTRAL NERVOUS SYSTEM: Not reported focal neurologic deficit prior to intubation and mechanical ventilation, but earlier physician's examination. LABORATORY DATA: Arterial blood gas yesterday, the patient post-intubation, 40% oxygen, pH of 7.41, pCO2 of 39, pO2 of 147. The chest x-ray yesterday post-intubation in the afternoon noted endotracheal tube and NG tube in proper position. Lungs were noted well inflated without any pulmonary infiltration. CBC that was done this morning as a normal CBC. The CMP that was done on 08/28, normal BUN and creatinine. AST 130, ALT 193. Arterial blood gas this morning, 30% oxygen assist control, volume control, pH is 7.43, pCO2 of 33, pO2 80.6. The endotracheal aspirate culture preliminary normal miya from yesterday, Gram stain, many white blood cells, few epithelial cells, few gram-positive cocci in pairs and gram-negative bacilli. IMPRESSION: 1. The patient has been noted with acute respiratory failure secondary effects of sedation recorded withdrawal management. There was no evidence of acute pneumonia. 2. Abnormal LFT for the noted. AST and ALT were noted mildly elevated. Related to possibility alcohol administration, which has been noted to have chronically does not appear to have alcoholic hepatitis. 3. The patient with a history of chronic nicotine dependence as well with gastroesophageal reflux history as well. Urine drug screen was also done on admission and noted negative for any illicit drugs on 08/24/2018. CMP at that time was noted AST and ALT noted elevated and partial reduction noted since [place], [place] REPORT OF CONSULTATION NAME: JESSICA GALVIN UNIT #: [id number] ROOM: 421 DOCTOR: SEAMUS EDEN MD BIRTHDATE: [birth year] previously. Mild lactic acid secondary to the current alcohol withdrawal and other reason for the patient is less likely to be acute sepsis. 4. Sinus tachycardia, mostly secondary to withdrawal from patient on the alcohol PLAN OF MANAGEMENT: The patient will be continued on the mechanical ventilation with sedation. Continue close monitoring of the LFTs for the liver dysfunction as well. Ventilator bundle management all initiated. Monitor culture results. There was no need of antibiotics at this time. Bronchodilators to help mobilize secretions. DVT prophylaxis. Other medical management changes will be ordered based on the progression of the illness. . Monitoring a sinus tachycardia, no acute intervention will be needed. Total time in pulmonary critical care, evaluation, and management was 38 minutes SEAMUS EDUARDO MD CM:CONSTR:REPORT OF CONSULTATION 1350 10/19/18 0908 interface
--- NOTE | ~2018-08-25 | PROC NOTE ---
[place], [place] PROCEDURE NOTE NAME: JESSICA GALVIN UNIT #: [id number] ROOM: [place] [address] DOCTOR: JAYCE SANCHEZ MD,SEAMUS BIRTHDATE: [birth year] DOS: 09/01/2018 PROCEDURE: Fiberoptic bronchoscopy. PREOPERATIVE DIAGNOSES: Excessive secretion production, bilateral pulmonary infiltration, acute respiratory distress syndrome. POSTOPERATIVE DIAGNOSES: Removal of thick mucus plugs from the endobronchial tree bilaterally with a copious amount of secretions in the left endobronchial tree and moderate mucus impaction from the right endobronchial tree as well. PROCEDURE DESCRIPTION: Informed consent obtained from the patient's family members. The patient was continued on mechanical ventilator. Procedure performed in the Surgery Department. The patient brought to the OR. General anesthesia was administered for the procedure. The fiberoptic bronchoscope advanced into the lower part of trachea. Lower part trachea noted with some crusty secretion with some irritation at the end of the endotracheal tree. Moderate amount of secretion present in the endotracheal lumen, which was suctioned out. Magi noted sharp. Right upper, middle, lower lobe bronchus noted moderate mucus plug impaction, which were cleared out. Left main stem bronchus noted with a filling of thick purulent secretion with some mucus secretion suctioned at magi level. The patient was noted with deeper impaction of the mucus plug and copious amount of bilious secretion in all of the endobronchial subsegments, left upper, lingula, and lower lobe. All the secretion suctioned out clear with normal saline wash, sent for cultures. No complications noted during or after procedure. Procedure well tolerated. Postoperative findings were discussed with the patient's family members as well in the recovery room. SEAMUS EDUARDO MD CM:PROCNOTE:PROCEDURE NOTE [phone] SEAMUS SANCHEZ MD
--- NOTE | ~2018-08-25 | PR ---
[place], [place] PROGRESS NOTE NAME: JESSICA GALVIN UNIT #: [id number] ROOM: [place] [address] DOCTOR: JAYCE SANCHEZ MD,SEAMUS BIRTHDATE: [birth year] DOS: 09/04/2018 PULMONARY PROGRESS NOTE The patient is independently seen and examined in [id number] encounter. History was confirmed. Physical examination performed. Labs were reviewed. Note done by the adjunct faculty for medical terminology for the patient was approved as well. The assessment and management of the patient on today's visit was personally completed. SUBJECTIVE: The patient was successfully liberated from mechanical ventilator yesterday, noted fully awake and alert. He has not been noted with symptoms of chest pain, fever or chills. Denies symptoms of hemoptysis. The patient has not reported symptoms of nausea and vomiting, started on clear liquid, which has been tolerated for the last 24 hours without any swallowing difficulty. The patient has not been reported any symptoms of chest pain, fever or chills. Denies symptoms of nausea, vomiting, or diarrhea. Appeared to be awake, alert, oriented. There were no signs of any alcohol withdrawal this morning. The remaining systems reviewed, noted all negative. Past family, social, surgical history information reviewed and it was noted unchanged. OBJECTIVE: VITAL SIGNS: For the patient, which has been recorded shows normal temperature to 99.3 degree Fahrenheit, respiratory rate of 16-18, heart rate of 97, blood pressure 120/81-128/70. Pulse oxygen saturation on 6 liters nasal canula 92% saturation. HEENT: Head was atraumatic. Eyes, no icterus. NECK: Supple. CARDIOVASCULAR SYSTEM: S1, S2 audible. LUNGS: The patient was noted without any wheezing or crackles this morning. ABDOMEN: Soft, nontender. Bowel sounds present. EXTREMITIES: No acute change. MUSCULOSKELETAL: Without any acute deformities. CENTRAL NERVOUS SYSTEM: Overall intact. The patient is able to move the upper and lower extremity with the vocal commands. VISIBLE SKIN: No lesions or rashes. LABORATORY DATA: CBC today: WBC count 8.1, hemoglobin 12.3, platelet count of 246,000. The CMP of the patient this morning, normal BUN and creatinine. Potassium 3.1. AST 62, ALT 100. Blood culture from of this month showed no bacterial growth. IMPRESSION: 1. The patient with improving acute hypoxic respiratory failure. 2. Resolution recorded withdrawal for the patient and currently detoxification completely. 3. Resolving acute pneumonia, gram-negative pneumonia secondary to aspiration. [place], [place] PROGRESS NOTE NAME: JESSICA GALVIN UNIT #: [id number] ROOM: [place] [address] DOCTOR: JAYCE SANCHEZ MD,SEAMUS BIRTHDATE: [birth year] 4. Resolution of tachycardia. 5. Moderate obesity. 6. Past history of nicotine abuse. 7. Mild hypokalemia. 8. Abnormal liver function tests secondary to chronic alcohol use. PLAN OF MANAGEMENT: Use the oxygen supplementation, maintain pulse oxygen saturation 92% or greater. Discontinue Carver catheter and rectal tube. Physical therapy and occupation therapy, transfer the patient from the Intensive Care Unit to medical floor. Continue other therapy, plan of management and care plan with further changes in treatment will be done as the illness progresses. The patient has been previously ordered Haldol p.r.n. that could be still used for this patient as needed. However, he has been noted cooperative with examination without disorientation or agitation. SEAMUS EDUARDO MD CM:JULES [phone] SEAMUS SANCHEZ MD 09/05/18 0344 interface
[~2018-08-25 20:43] MED LIST: DAYPRO600 M1 PO; FLAGYL500 MG PO; FLEXERIL10 MG PO; LAMICTAL25 MG PO; OMEPRAZOLE40 MG PO; QUETIAPINE FUM100 M1 PO; VENTOLIN,PR2 MG/5 ML INH
[2018-08-25 21:03] VITALS: BP 152/91
[2018-08-25 21:46] LABS: BASO % 0.3 % (0.0-1.0); EOS % 0.3 % (1.0-4.0); HEMATOCRIT 42.7 % (42.0-52.0); HEMOGLOBIN 14.7 g/dl (14.0-18.0); LYMPH # 0.4 10*3/uL (1.3-4.4); LYMPH % 10.8 % (27.0-41.0); MEAN CELL VOLUME 99.8 fl (80.0-94.0); MEAN CORPUSCULAR HGB 34.3 pg (27.0-31.0); MEAN CORPUSCULAR HGB CONC 34.4 g/dl (33.0-37.0); MEAN PLATELET VOLUME 9.5 fl (9.6-12.3); MONO # 0.2 10*3/uL (0.1-1.0); MONO % 5.3 % (3.0-9.0); NEUT # 3.1 10*3/uL (2.3-7.9); NEUT % 82.2 % (47.0-73.0); PLATELET COUNT AUTOMATED 206 10*3/uL (130-400); RED BLOOD COUNT 4.28 10*6/uL (4.50-5.90); RED CELL DISTRI WIDTH 13.7 % (0-14.5); WHITE BLOOD COUNT 3.8 10*3/uL (4.8-10.8)
[2018-08-25 21:54] VITALS: BP 131/90
[2018-08-25 22:01] LABS: ALBUMIN 4.2 gm/dl (3.1-4.5); ALKALINE PHOSPHATASE 79 U/L (45-117); BUN 5 mg/dl (7-24); CHLORIDE 107 mmol/L (98-107); CREATININE 0.84 mg/dL (0.70-1.30); POTASSIUM 3.9 mmol/L (3.5-5.1); SGOT/AST 161 IU/L (3-35); SGPT/ALT 237 U/L (12-78); SODIUM 141 mmol/L (136-145); TOTAL PROTEIN 8.7 gm/dL (6.4-8.2)
[2018-08-25 22:09] LABS: THYROID STIM HORMONE (HS) 0.513 uIU/ml (0.358-4.75)
[2018-08-25 22:41] LABS: URINE AMPHETAMINES < 1000 (1000ng/ml); URINE BARBITURATES < 200 (200ng/ml); URINE BENZODIAZEPINES > 200 (200ng/ml); URINE CANNABINOIDS (THC) < 50 (50ng/ml); URINE COCAINE < 300 (300ng/ml); URINE METHADONE < 300 (300ng/ml); URINE OPIATES < 300 (300ng/ml)
--- NOTE | 2018-08-25 22:44 | NUR ---
PATIENT ATTEMPTED TO LEAVE AND WAS FOUND WITH HIS IV OUT. PATIENT WAS BROUGHT BACK TO ROOM AND NEW IV STARTED.
[2018-08-25 22:47] VITALS: BP 130/88
[2018-08-25 22:48] LABS: URINE PHENCYCLIDINE < 25 (25ng/ml)
--- NOTE | 2018-08-25 23:32 | NUR ---
PATIENT RIPPED LAST IV OUT. 2 NEW IV'S STARTED.
[2018-08-25 23:33] VITALS: BP 135/67
[2018-08-25 23:45] VITALS: BP 141/97
--- NOTE | 2018-08-25 23:45 | NUR ---
A 48, admitted to ICCU, under the services of CARLO Aguilar DO with a diagnosis of [id number] WITHDRAWAL. Chief complaint is ALCOHOL DETOX. Patient arrived via bed from ER. Monitor applied. Initial assessment completed. Vital signs taken and recorded. CARLO AGUILAR DO notified of admission to the unit. Orders received. See assessment for past medical history, medications and allergies. Patient and/or family oriented to unit. [facility] visitation policy reviewed. Clothing/patient valuable form completed. DALY DAVENPORT
--- NOTE | 2018-08-25 23:59 | NUR ---
SPOKE WITH DR. APPIAH, PATIENT CONDITION REVIEWED AND MED REC UP-TO-DATE PER PT. ORDERS RECEIVED.
--- NOTE | 2018-08-26 02:45 | NUR ---
DR. APPIAH AWARE OF REPEAT LACTIC ACID RESULT. MVI BAG INITIATED. PATIENT RESTING IN BED.
[2018-08-26 03:57] VITALS: BP 134/88
--- NOTE | 2018-08-26 05:33 | NUR ---
Shift chart check completed.
[2018-08-26 08:00] VITALS: BP 114/76
--- NOTE | 2018-08-26 08:30 | NUR ---
DR GOLDBERG ROUNDED - SPOKE WITH PATIENT./ PATIENT INSTRUCTED NOT TO GET OUT OF BED WITHOUT ASSISTANCE. PER THE PATIENT HE CAME BACK TO THE HOSPITAL BECAUSE HE DIDN'T HAVE A WAY HOME. 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 MEDICATED WITH PRN ROBAXIN & VISTARIL
--- NOTE | 2018-08-26 09:58 | NUR ---
PER POISON CONTROL THEY ARE CLOSING THE CASE & CALL IF NEED ANY FURTHER ASSISTANCE
--- NOTE | 2018-08-26 10:43 | NUR ---
DOZING INTERMITTENTLY SINCE MEDICATED WITH ROBAXIN & VISTARIL
--- NOTE | 2018-08-26 11:14 | NUR ---
PT SPILLED URINAL ONTO HIMSELF & THE BED - BATH & BED CHANGED
--- NOTE | 2018-08-26 11:34 | NUR ---
PT C/O STOMACH CRAMPING A LITTLE AND BURNING - MED WITH ZOAN & SCARLETTLY PER PRN ORDERS
[2018-08-26 12:00] VITALS: BP 114/81
--- NOTE | 2018-08-26 12:37 | NUR ---
ATIVAN GIVEN FOR INCREASING ANXIETY, TEARFUL - PER PT WHEN ASKED IF AFRAID HE SAID HE HAS NO ONE - DISCUSSED SOMEONE TO TALK TO & HE AGREED. THEN ASKING FOR SOMETHING STRONGER - NURSE ASKED WHAT HE MEANT AND HE SAID "LIKE DEMEROL"
--- NOTE | 2018-08-26 13:34 | NUR ---
DR AL TO BE NOTIFIED AT 0700 TOMORROW ABOUT CONSULT - OK'D WITH DR GOLDBERG
--- NOTE | 2018-08-26 13:39 | NUR ---
DR GOLDBERG ROUNDED AGAIN. PATIENT TALKS ON PHONE THEN IS NOW WANTING MORE MEDICATIONS AND IS LOOKING EVERYTHING UP TO SEE IF IT HAS A STRONGER DOSE. ONCE AGAIN EXPLAINED THAT WE HAVE A PROGRAM AND THAT WE ARE NOT GOING TO GIVE HIM NARCOTICS OR STRONGER DOSES. PRN VISTARIL & ROBAXIN GIVEN.
--- NOTE | 2018-08-26 14:30 | NUR ---
ATIVAN GIVEN FOR CONTINUED RESTLESSNESS, RAMBLING & VOICED ANXIETY WITH STOMACH HEARTBURN BUT REFUSES MAALOX - MAJO PAU GIVEN - REFUSES TO EAT
[2018-08-26 16:00] VITALS: BP 138/97
--- NOTE | 2018-08-26 16:00 | NUR ---
ATIVAN GIVEN FOR CONTINUED RESTLESSNESS, RAMBLING AND ANXIETY. MAALOX ALSO GIVEN FOR C/O HEARTBURN. SMALL DINNER ORDERED. IV SITES REMAIN INTACT & PATENT
--- NOTE | 2018-08-26 17:20 | NUR ---
ATIVAN GIVEN FOR CONTINUED TREMORS, ANXIETY, RAMBLING, TACHYCARDIA, FEELING CLAMMY. MINIMAL TO NO EFFECT FROM PREVIOUS DOSE
--- NOTE | 2018-08-26 18:27 | NUR ---
ATIVAN GIVEN FOR TACHYCARDIA, ANXIETY, TREMORS, RAMBLING
--- NOTE | 2018-08-26 18:40 | NUR ---
PT ALREADY ASKING FOR MORE MEDICATION PRIOR TO ME LEAVING & HOW SOON HE CAN HAVE MORE & HOW MUCH IS THE DOSE.
--- NOTE | 2018-08-26 19:30 | NUR ---
Shift chart check completed.24 HR chart check completed.
--- NOTE | 2018-08-26 19:57 | NUR ---
ON ASSESSMENT PATIENT IS ASKING FOR SOMETHING FOR "MY SHAKES". HE HOLDS HIS HANDS OUT TO SHOW ME. HE'S ABLE TO TELL ME HE'S IN "[place]". NO SEIZURE ACTIVITY NOTED. HE'S TACHYCARDIC. BP 140/100 MANUAL. SEE ALL APPROPRIATE INTERVENTIONS.
[2018-08-26 20:00] VITALS: BP 138/105; BP 140/100
--- NOTE | 2018-08-26 20:04 | NUR ---
PT GIVEN ORAL ROBAXIN FOR MUSCLE ACHES AND VISTARIL FOR ANXIETY. 2MG IV ATIVAN. BED IS IN LOW POSITION WITH WHEELS LOCKED.
--- NOTE | 2018-08-26 21:15 | NUR ---
PT HAS NOT COMPLAINED OF MUSCLE ACHES SINCE THE EARLIER ROBAXIN. HE HAS NOT CLOSED HIS EYES SINCE THE VISTARIL AND ATIVAN. HE HAS PUSHED MULTIPLE BUTTONS ON HIS PHONE UNTIL HE CAN NO LONGER MAKE IT WORK. HE'S ATTEMPTING TO CALL [employer]. I HAVE SUGGESTED THAT HE NOT BE TRYING TO MAKE CHANGES ON HIS PHONE OR CONDUCT BUSINESS OVER THE PHONE WHILE HE'S HAD SO MANY MEDICATIONS. HE HAS CONTINUED TO RAMBLE TO UNKNOWN PERSON ON HIS PHONE.
--- NOTE | 2018-08-26 21:38 | NUR ---
PT MEDICATED WITH HIS HS MEDS AND TRAZADONE FOR SLEEP. OUT OF BED TO CHAIR WHILE HIS LINENS CHANGED (HE HAD SPILLED WATER ALL THROUGH THE BED). WHILE CHANGING THE LINENS HE STOOD UP SEVERAL TIMES IN SPITE OF BEING TOLD TO SIT STILL. HE'S GOT HIS PHONE TO WORK, HAS A MOVIE PLAYING. WARM BLANKETS PLACED. LIGHTS DIMMED AROUND HIM. CURTAIN CLOSED SLIGHTLY. AND ENCOURAGED TO SLEEP.
--- NOTE | 2018-08-26 21:58 | NUR ---
TRAZADONE FOR SLEEP REPEATED PER MAR DIRECTIONS.
--- NOTE | 2018-08-26 22:16 | NUR ---
PT IS RESTING SOME AFTER EARLIER MEDS. HE'S MUMBLING, COULD BE ON THE PHONE. HE COMMENTS/ANSWERS CONVERSATIONS AMONG STAFF.
--- NOTE | 2018-08-26 22:26 | NUR ---
PT SAYS "I GOTTA GO HOME. 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 HE'S STILL ABLE TO SAY HE'S IN "[place]".
--- NOTE | 2018-08-26 22:44 | NUR ---
PT ON HIS PHONE, BUT DROPS IT BECAUSE HE'S DROWSY.
--- NOTE | 2018-08-26 23:18 | NUR ---
I LEFT THE ICCU TO START AN IV ON ANOTHER PATIENT. WHEN I RETURNED PATIENT WAS PARTIALLY DRESSED, WANTING TO LEAVE. ATTEMPT TO REORIENT HIM TO TIME OF DAY, AND WHERE HE IS. HE CLAIMS HE COULD "PROBABLY GET A RIDE IF I CAN GET TO THE LOBBY". EXPLANATIONS AGAIN THAT HE CAME HERE MONDAY FOR HELP AND WE ARE TRYING TO HELP HIM. HE THEN SAID "JUICE ME UP". IV ATIVAN GIVEN. PT IS IN VIEW OF THE NURSES STATION. BED IS IN LOW POSITION WITH WHEELS LOCKED.
--- NOTE | 2018-08-26 23:22 | NUR ---
PT CLAIMS "I'VE BEEN [place] PROGRAMS [place] OVER [place] AND I'VE NEVER SEEN A PLACE WHERE I COULDN'T GET UP AND GO HAVE A CIGARETTE."
--- NOTE | 2018-08-26 23:26 | NUR ---
PT ON HIS KNEES IN THE BED, LEANING OVER THE SIDERAIL, ATTEMPTING TO PLUG HIS PHONE IN. I TALKED HIM INTO PLACEING THE PHONE IN THE DRAWER. ATTEMPTED TO GET HIM TO COMFORTABLE POSITION.
--- NOTE | 2018-08-26 23:47 | NUR ---
HEADPHONES ON PATIENT WITH THE TV, ATTEMPTING TO DECREASE AUDITORY STIMULI FROM THE BUSY ICCU.
[2018-08-27] VITALS (8 sets, daily range): BP systolic 98–139; BP diastolic 61–96
--- NOTE | 2018-08-27 00:05 | NUR ---
PT BECOMING AGITATED. ATTEMPTING TO "GO GET A PACK OF CIGARETTES". WHEN HE DOES LAY DOWN WITH HIS EYES CLOSED, HE'S TALKING CONSTANTLY. I AM SITTING AT THE FOOT OF HIS BED. I'VE ATTEMPTED LEAST RESTRICTIVE MEASURES.
--- NOTE | 2018-08-27 00:13 | NUR ---
CIWA SCORE HAS INCREASED SINCE IV ATIVAN. HE FEELS THE BED MOVING "MUST BE A MASSAGE CHAIR OVER THERE". HE CAN BARELY KEEP HIS EYES OPEN. HE MUMBLES ALMOST CONTINUALLY. HAS HIS PHONE AGAIN OUT OF THE DRAWER. HR 130.
--- NOTE | 2018-08-27 00:26 | NUR ---
ASSISTED TO STAND TO VOID.
--- NOTE | 2018-08-27 00:45 | NUR ---
PT HR STILL 120'S-130'S. IV ATIVAN GIVEN. PT MUMBLES ALMOST CONTINUALLY BUT EXPECTS US TO ANSWER SO YOU HAVE TO BE SITTING CLOSE SO YOU CAN HEAR HIM AND ANSWER.
--- NOTE | 2018-08-27 01:07 | NUR ---
PT STILL AWAKE AFTER IV ATIVAN. HE'S PLAYING WITH HIS CELLPHONE. STILL INTERJECTING HIMSELF INTO ALL STAFF CONVERSATIONS.
--- NOTE | 2018-08-27 01:09 | NUR ---
PT MUMBLING, NO SEIZURE ACTIVITY. HE SAID "WHEN I DRIED OUT BEFORE THEY GAVE ME PHENOBARB, BUT THAT'S AN OLD DRUG".
--- NOTE | 2018-08-27 01:41 | NUR ---
PT SCOOTS TO BOTTOM OF BED, SAYS HE NEEDS "MORE JUICE". IV ATIVAN 2MG GIVEN.
--- NOTE | 2018-08-27 01:55 | NUR ---
ASSISTED TO STAND TO VOID. HE'S VERY UNSTEADY. HE ASKED "HOW 'BOUT WE GO OUTSIDE AND HAVE A SMOKE". REPEATED EXPLANATIONS.
--- NOTE | 2018-08-27 02:35 | NUR ---
CIWA LOWER THAN BEFORE LAST ATIVAN. HE HAS NOT SLEPT SINCE BEGINNING OF MY SHIFT AT 7PM.
--- NOTE | 2018-08-27 03:08 | NUR ---
PT PLAYING WITH HIS CELLPHONE WITH HIS EYES CLOSED AND STILL MUMBLING, INTERJECTING HIMSELF INTO STAFF CONVERSATIONS. HIS HR HAS SLOWED TO LESS THAN 110 WHEN HE'S LYING STILL.
--- NOTE | 2018-08-27 04:35 | NUR ---
PT HAS BEEN MUMBLING CONTINUALLY, PLAYING ON HIS PHONE, INTERJECTING HIMSELF INTO STAFF CONVERSATIONS. HE STILL HASN'T SLEPT THIS ENTIRE SHIFT. IV ATIVAN 2MG REPEATED AT 0425. MULTIPLE EXPLANATIONS AND ATTEMPTS TO REORIENT HIM.
--- NOTE | 2018-08-27 05:05 | NUR ---
PT TRYING TO GET HIS CLOTHES OUT OF HIS DRAWERS. "JM SAID IT'S TIME TO GO". I INFORMED HIM JM NOT HERE. "THEN HE LIED TO ME". PT'S ROUTINE PO LIBRIUM AND PRILOSEC HAVE BEEN GIVEN. FREQUENT REMINDER ABOUT WHERE HE IS AND WHY HE'S HERE. HE DOZES FOR 3-5 MINUTES THEN SHAKES HIMSELF AWAKE AGAIN.
--- NOTE | 2018-08-27 05:19 | NUR ---
GIVE ME SOME MORE "JUICE", HOLDING HIS ARM/HEP LOCK UP. IV ATIVAN 2MG GIVEN PER JUN.
--- NOTE | 2018-08-27 05:38 | NUR ---
ASSISTED TO STAND TO VOID.
--- NOTE | 2018-08-27 06:23 | NUR ---
PT HAS NOT SLEPT ENTIRE SHIFT. HE'S CONFUSED TO TIME. I'VE TOLD HIM REPEATEDLY ALL NIGHT LONG THAT BREAKFAST CAN BE ORDERED AT [address] SHOULD BE IN AROUND 9AM. HE THEN BECAME AGITATED, SAYING, "YOU TELL ME DIFFERENT TIMES ALL THE TIME". TRIED TO REORIENT THEN HE APOLOGIZES SAYING "I THOUGHT YOU MEANT AT NIGHT AND I'D HAVE TO WAIT ALL NIGHT AGAIN".
--- NOTE | 2018-08-27 06:31 | NUR ---
"WHERE'S MY NEXT SHOT? ONE FOR THE ROAD".
--- NOTE | 2018-08-27 06:42 | NUR ---
IV ATIVAN WAS REPEATED PER HIS REQUEST AT 0634.
--- NOTE | 2018-08-27 06:52 | NUR ---
ASSISTED TO STND TO VOID. HE MISSED THE URINAL, VOIDED LARGE AMOUNT ON FLOOR. NO SEIZURE ACTIVITY THIS SHIFT.
--- NOTE | 2018-08-27 07:24 | NUR ---
DR AL'S ANSWERING SERVICE NOTIFIED OF CONSULTATION.
--- NOTE | 2018-08-27 07:24 | NUR ---
24 HR chart check completed.
--- NOTE | 2018-08-27 08:09 | NUR ---
PT VERY AGITATED. MEDICATED WITH ATIVAN 2MG IV AND VISTARIL 50MG PO. IT HAS NOT HELPED AT ALL. CONSTANT SUPERVISION AND REDIRECTION REQUIRED BY STAFF.
[2018-08-27 08:17] LABS: BASO % 0.4 % (0.0-1.0); EOS # 0.2 10*3/uL (0.0-0.4); EOS % 5.1 % (1.0-4.0); HEMATOCRIT 43.2 % (42.0-52.0); HEMOGLOBIN 14.5 g/dl (14.0-18.0); LYMPH # 1.1 10*3/uL (1.3-4.4); LYMPH % 22.5 % (27.0-41.0); MEAN CELL VOLUME 101.6 fl (80.0-94.0); MEAN CORPUSCULAR HGB 34.1 pg (27.0-31.0); MEAN CORPUSCULAR HGB CONC 33.6 g/dl (33.0-37.0); MEAN PLATELET VOLUME 9.5 fl (9.6-12.3); MONO # 0.6 10*3/uL (0.1-1.0); MONO % 12.6 % (3.0-9.0); NEUT # 2.7 10*3/uL (2.3-7.9); NEUT % 58.3 % (47.0-73.0); PLATELET COUNT AUTOMATED 155 10*3/uL (130-400); RED BLOOD COUNT 4.25 10*6/uL (4.50-5.90); RED CELL DISTRI WIDTH 13.8 % (0-14.5); WHITE BLOOD COUNT 4.7 10*3/uL (4.8-10.8)
[2018-08-27 08:31] LABS: ALBUMIN 4.2 gm/dl (3.1-4.5); ALKALINE PHOSPHATASE 67 U/L (45-117); BUN 6 mg/dl (7-24); CHLORIDE 104 mmol/L (98-107); CREATININE 0.86 mg/dL (0.70-1.30); POTASSIUM 3.3 mmol/L (3.5-5.1); SGOT/AST 146 IU/L (3-35); SGPT/ALT 200 U/L (12-78); SODIUM 142 mmol/L (136-145); TOTAL PROTEIN 8.1 gm/dL (6.4-8.2)
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
--- NOTE | 2018-08-27 09:37 | NUR ---
PT MEDICATED WITH ATIVAN 2MG IV FOR AGITATION AGAIN. PT IS NOW CALM AND SLEEPING AT THIS TIME.
--- NOTE | 2018-08-27 11:04 | NUR ---
Dr. MCMAHON for intubation. Patient intubated with 7 [place] endotracheal tube orally X 1 attempts. Patient sedated with SUCCS AND ETOMIDATE Respiratory therapy at bedside. Crash cart with emergency drugs available. Endotracheal tube inflated with 10cc's. Lungs auscultated for equality of breath sounds. Tube secured with Tube tamer at 26cm's. at level of LIP. Patient tolerated procedure 1. Portable chest X-ray obtained and reviewed for tube placement. Patient connected to ventilator CMV mode, 600 tidal volume, 40 FIO2, 5 PEEP, and 0 pressure support. JANE SADLER
[2018-08-27 12:13] LABS: ABG BASE EXCESS 1.2 mmol/L (-2.0-2.0); ABG HCO3 25.6 mmol/l (22-26); ABG O2 SATURATION 99.7 % (95-97); ARTERIAL BLOOD GAS PCO2 39.8 mmHg (35-45); ARTERIAL BLOOD GAS PH 7.419 (7.35-7.45)
--- NOTE | 2018-08-27 12:21 | NUR ---
FIO2 DECREASED TO 30%
--- NOTE | 2018-08-27 12:27 | NUR ---
Mixed Livestock Farm Worker in to see patient. He is currently intubated. Discharge plan undecided at this time.
--- NOTE | 2018-08-27 13:02 | NUR ---
FIO2 INCREASED TO 40%, SAT 88 ON 30%. RN AWARE.
--- NOTE | 2018-08-27 19:15 | NUR ---
PATIENT BEGAN TO REAR UP OUT OF BED, TRYING TO PULL AT LINES. VERSED GIVEN. EFFECTIVE IMMEDIATELY.
--- NOTE | 2018-08-27 19:27 | NUR ---
24 HR chart check completed.
--- NOTE | 2018-08-27 22:20 | NUR ---
VERSED GIVEN TO BATHE PATIENT. EFFECTIVE A SHORT TIME LATER.
[2018-08-28] VITALS (12 sets, daily range): BP systolic 96–128; BP diastolic 65–86
[2018-08-28 04:51] LABS: BASO % 0.3 % (0.0-1.0); EOS # 0.3 10*3/uL (0.0-0.4); EOS % 3.9 % (1.0-4.0); HEMATOCRIT 42.9 % (42.0-52.0); HEMOGLOBIN 14.2 g/dl (14.0-18.0); LYMPH # 1.4 10*3/uL (1.3-4.4); LYMPH % 20.4 % (27.0-41.0); MEAN CELL VOLUME 102.9 fl (80.0-94.0); MEAN CORPUSCULAR HGB 34.1 pg (27.0-31.0); MEAN CORPUSCULAR HGB CONC 33.1 g/dl (33.0-37.0); MEAN PLATELET VOLUME 10.7 fl (9.6-12.3); MONO # 0.6 10*3/uL (0.1-1.0); NEUT # 4.6 10*3/uL (2.3-7.9); NEUT % 66.8 % (47.0-73.0); PLATELET COUNT AUTOMATED 173 10*3/uL (130-400); RED BLOOD COUNT 4.17 10*6/uL (4.50-5.90); RED CELL DISTRI WIDTH 14.1 % (0-14.5); WHITE BLOOD COUNT 6.9 10*3/uL (4.8-10.8)
--- NOTE | 2018-08-28 06:18 | NUR ---
PATIENT BECOMING RESTLESS, REARING UP OUT OF BED. VERSED GIVEN. EFFECTIVE IMMEDIATELY.
[2018-08-28 06:20] LABS: ALBUMIN 3.7 gm/dl (3.1-4.5); ALKALINE PHOSPHATASE 63 U/L (45-117); BUN 13 mg/dl (7-24); CHLORIDE 109 mmol/L (98-107); CREATININE 0.84 mg/dL (0.70-1.30); PHOSPHOROUS 4.7 mg/dL (2.5-4.9); POTASSIUM 3.7 mmol/L (3.5-5.1); SGOT/AST 130 IU/L (3-35); SGPT/ALT 193 U/L (12-78); SODIUM 144 mmol/L (136-145); TOTAL PROTEIN 7.6 gm/dL (6.4-8.2)
--- NOTE | 2018-08-28 07:00 | NUR ---
PT AWAKE AND ALERT. PT OBEYS SIMPLE COMMANDS. PT REMIANS ON DIPRIVAN GTT AT 40MICS. PT IS AGITATED. UPDATED PT ON HIS CONDITION AND PLAN OF CARE. PT REMIANS INTUBATED WITH A 7.5 ENDOTUBE, 23 CMS AT THIS LIP. LUNG FIEDLS DIM. POX 94% ON 30% FIO2. SUCTIONED PT FOR SMALL AMOUNT OF WHITISH-YELLOW MUCOUS. OGT PLACMENT VERIFIED WITH AN AIR BOLUS. PULMOCARE TF CONTINUE AT 20CC/HR. NO RESIDUAL AT THIS TIME. ABD. SOFT WITH ACTIVE BOWEL SOUNDS. SMITH CATH PATNET FOR CLOUDY THERON URINE. NO PERIPHERAL EDEMA NOTED AT THIS TIME. WILL CONTINUE TO MONITOR PT.
[2018-08-28 07:17] LABS: ABG BASE EXCESS 0.6 mmol/L (-2.0-2.0); ABG HCO3 23.9 mmol/l (22-26); ABG O2 SATURATION 97.1 % (95-97); ARTERIAL BLOOD GAS PCO2 36.8 mmHg (35-45); ARTERIAL BLOOD GAS PH 7.43 (7.35-7.45); ARTERIAL BLOOD GAS PO2 80.6 mmHg (80-90)
--- NOTE | 2018-08-28 07:55 | NUR ---
PT AWAKE AND ALERT. PT FOLLOWS SIMPLE COMMANDS. PT VERY AGITATED. PT TRYING TO GET OOB AND PULL OUT ENDOTUBE. HR 128. RESP RATE MID 20'S. MEDICATED PT PER PRN ORDER WITH ATIVAN. WILL CONTINUE TO MONITOR PT.
--- NOTE | 2018-08-28 08:22 | NUR ---
PT CONTINUES TO BE AGITATED. HR NOW 130'S WITH RESP RATE 30. MEDICATED PT PER PRN ORDER WITH VERSED.
--- NOTE | 2018-08-28 08:36 | NUR ---
PT RESTING. HR 119. RESP RATE 17. . EARLIER VERSED EFFECTIVE.
--- NOTE | 2018-08-28 09:00 | NUR ---
Field Technical Assistant in to see patient. He is currently intubated. Discharge plan undecided at this time.
--- NOTE | 2018-08-28 10:22 | NUR ---
PT RESTING. NO ACUTE DISTRESS NOTED AT THIS TIME.
--- NOTE | 2018-08-28 10:30 | NUR ---
DR CAMPBELL IN TO SEE PT.
--- NOTE | 2018-08-28 11:10 | NUR ---
IV ATIVAN GTT STARTED AT 1MG/HR.
--- NOTE | 2018-08-28 11:51 | NUR ---
IV VERSED GIVEN PER PRN ORDER FOR PT'S AGITTION.
--- NOTE | 2018-08-28 12:30 | NUR ---
PT SITTING UP IN BED. PT TRYING TO PULL ENDOTUBE. IV ATIVAN GTT IN CREASED TO 2MG/HR. IV DIPRIVAN GTT INCREASED TO 50 MICS/KG/MIN.
--- NOTE | 2018-08-28 13:00 | NUR ---
PT RESTING. VSS. WILL CONTINUE TO MONITOR PT.
--- NOTE | 2018-08-28 15:41 | NUR ---
MEDICATED PT PER PRN ORDER VERSED FOR PT'S AGITATION.
--- NOTE | 2018-08-28 16:34 | NUR ---
PT RESTING. VSS. WILL CONTINUE TO MONITOR PT.
--- NOTE | 2018-08-28 20:00 | NUR ---
TYLENOL GIVEN FOR A TEMP OF 101.1. WILL MONITOR AND REASSESS.
--- NOTE | 2018-08-28 20:00 | NUR ---
PATIENTS PULSE OX SHOWING 85% ON 30%. PATIENT WAS SUCTIONED, RESPIRATORY CONTACTED. TITRATED O2 UP TO 70% WITH A PULSE OX OF 92%.
--- NOTE | 2018-08-28 20:50 | NUR ---
CONTACTED DR. HERNANDEZ TO NOTIFY OF PATIENTS TEMP OF 101, HR 117 AND PULSE OX OF 85-92% WITH AN INCREASE OF 40% OXYGEN ON VENT. NEW ORDERS RECEIVED FOR CXR, LABS, ABGS.
[2018-08-28 21:12] LABS: ABG BASE EXCESS 0.5 mmol/L (-2.0-2.0); ABG HCO3 23.7 mmol/l (22-26); ABG O2 SATURATION 95.4 % (95-97); ARTERIAL BLOOD GAS PCO2 37.9 mmHg (35-45); ARTERIAL BLOOD GAS PH 7.42 (7.35-7.45); ARTERIAL BLOOD GAS PO2 78.6 mmHg (80-90)
[2018-08-28 21:13] LABS: BASO % 0.2 % (0.0-1.0); EOS # 0.2 10*3/uL (0.0-0.4); EOS % 1.9 % (1.0-4.0); HEMATOCRIT 43.4 % (42.0-52.0); HEMOGLOBIN 14.2 g/dl (14.0-18.0); LYMPH # 0.9 10*3/uL (1.3-4.4); LYMPH % 9.1 % (27.0-41.0); MEAN CELL VOLUME 104.1 fl (80.0-94.0); MEAN CORPUSCULAR HGB 34.1 pg (27.0-31.0); MEAN CORPUSCULAR HGB CONC 32.7 g/dl (33.0-37.0); MEAN PLATELET VOLUME 10.4 fl (9.6-12.3); MONO # 0.9 10*3/uL (0.1-1.0); MONO % 9.2 % (3.0-9.0); NEUT # 7.4 10*3/uL (2.3-7.9); NEUT % 79.3 % (47.0-73.0); PLATELET COUNT AUTOMATED 161 10*3/uL (130-400); RED BLOOD COUNT 4.17 10*6/uL (4.50-5.90); RED CELL DISTRI WIDTH 14.1 % (0-14.5); WHITE BLOOD COUNT 9.3 10*3/uL (4.8-10.8)
[2018-08-28 21:27] LABS: ALBUMIN 3.7 gm/dl (3.1-4.5); ALKALINE PHOSPHATASE 59 U/L (45-117); BUN 15 mg/dl (7-24); CHLORIDE 107 mmol/L (98-107); CREATININE 0.86 mg/dL (0.70-1.30); POTASSIUM 3.5 mmol/L (3.5-5.1); SGOT/AST 119 IU/L (3-35); SGPT/ALT 189 U/L (12-78); SODIUM 139 mmol/L (136-145); TOTAL PROTEIN 7.5 gm/dL (6.4-8.2)
--- NOTE | 2018-08-28 21:45 | NUR ---
PATIENT HAS TEMP OF 100.5. MOTRIN GIVEN. WILL MONITOR AND REASSESS.
[2018-08-29] VITALS (12 sets, daily range): BP systolic 86–141; BP diastolic 50–84
--- NOTE | 2018-08-29 01:12 | NUR ---
PATIENT RESTLESS VERSED GIVEN. WILL MONITOR.
--- NOTE | 2018-08-29 03:04 | NUR ---
PATIENTS HEART RATE 130, RESTLESS. VERSED GIVEN. WILL MONITOR.
--- NOTE | 2018-08-29 03:15 | NUR ---
VERSED NOT EFFECTIVE, HR STILL 130'S, TEMP 101.5. TYLENOL GIVEN. DR. HERNANDEZ NOTIFIED. NEW ORDERS RECEIVED.
--- NOTE | 2018-08-29 05:39 | NUR ---
REASSESSMENT AFTER TYLENOL AND PHENOBARB. HR 120, TEMP 98.9
[2018-08-29 05:48] LABS: ALBUMIN 3.7 gm/dl (3.1-4.5); ALKALINE PHOSPHATASE 69 U/L (45-117); BUN 19 mg/dl (7-24); CHLORIDE 108 mmol/L (98-107); CREATININE 1.27 mg/dL (0.70-1.30); POTASSIUM 3.1 mmol/L (3.5-5.1); SGOT/AST 115 IU/L (3-35); SGPT/ALT 179 U/L (12-78); SODIUM 142 mmol/L (136-145); TOTAL PROTEIN 7.6 gm/dL (6.4-8.2)
[2018-08-29 06:20] LABS: BASO % 0.4 % (0.0-1.0); EOS % 0.5 % (1.0-4.0); HEMOGLOBIN 14.5 g/dl (14.0-18.0); LYMPH # 0.4 10*3/uL (1.3-4.4); LYMPH % 4.8 % (27.0-41.0); MEAN CELL VOLUME 104.7 fl (80.0-94.0); MEAN CORPUSCULAR HGB 33.7 pg (27.0-31.0); MEAN CORPUSCULAR HGB CONC 32.2 g/dl (33.0-37.0); MEAN PLATELET VOLUME 11.1 fl (9.6-12.3); MONO # 0.7 10*3/uL (0.1-1.0); MONO % 8.6 % (3.0-9.0); NEUT # 7.3 10*3/uL (2.3-7.9); NEUT % 85.3 % (47.0-73.0); PLATELET COUNT AUTOMATED 148 10*3/uL (130-400); RED CELL DISTRI WIDTH 14.2 % (0-14.5); WHITE BLOOD COUNT 8.6 10*3/uL (4.8-10.8)
--- NOTE | 2018-08-29 08:00 | NUR ---
PT REMAINS INTUBATED WITH A 7.5 ENDOTUBE,26CM AT THE LIP. POX 95% ON 80% FIO2 RR 26. SUCTIONED PT FOR SMALL AMOUNT OF WHITISH-YELLOW SPUTUM. RECTAL TEMP 99.5, MANUAL BP 86/50, HR 113. OGT PLACEMENT VERIFIED WITH AN AIR BOLUS. NO RESIDUAL NOTED. TUBE FEEDINGS REMAIN AT 20CC/HR. ABD. SOFT WITH ACTIVE BOWEL SOUNDS. SMITH PATENT FOR THERON URINE. BILATERAL VINICIUS HOSE ON. NO PERIPHERAL EDEMA NOTED. IV ATIVAN AND DIPRIVAN GTT CONTINUE TO INFUSE. DECREASED IV DIPRIVAN TO 40 MICS [address] APPIAH AND DR JARRETT IN TO SEE PT. UPDATED THEM ON PT'S CONDITION AND PLAN OF CARE.
[2018-08-29 08:18] LABS: ABG BASE EXCESS -0.5 mmol/L (-2.0-2.0); ABG HCO3 23.7 mmol/l (22-26); ABG O2 SATURATION 94.9 % (95-97); ARTERIAL BLOOD GAS PCO2 41.4 mmHg (35-45); ARTERIAL BLOOD GAS PH 7.381 (7.35-7.45); ARTERIAL BLOOD GAS PO2 82.4 mmHg (80-90)
--- NOTE | 2018-08-29 08:20 | NUR ---
BLOOD GAS RESULT FOR 0718 ON THIS PATIENT WAS ENTERED UNDER THE WRONG PATIENT DO NOT USE FOR PATIENT CARE.
--- NOTE | 2018-08-29 09:32 | NUR ---
DR EDUARDO IN TO SEE PT. UPDATED HIM ON PT'S CONDITION AND PLAN OF CARE. NEW ORDERS RECEIVED.
--- NOTE | 2018-08-29 11:00 | NUR ---
Job Coach/Job Developer in to see patient. He is currently intubated. Discharge plan undecided at this time.
[2018-08-29 11:08] LABS: ABG HCO3 20.6 mmol/l (22-26); ABG O2 SATURATION 97.2 % (95-97); ARTERIAL BLOOD GAS PH 7.354 (7.35-7.45); ARTERIAL BLOOD GAS PO2 88.6 mmHg (80-90)
--- NOTE | 2018-08-29 12:00 | NUR ---
R IJ MLC PLACED BY DR APPIAH AFTER CONSENT OBTAINED BY PT'S MOTHER,MANOHAR. DR CAMPBELL IN TO SEE PT EARLIER. NEW ORDERS RECEIVED.
[2018-08-29 14:35] LABS: ABG BASE EXCESS -4.7 mmol/L (-2.0-2.0); ABG HCO3 19.8 mmol/l (22-26); ABG O2 SATURATION 97.7 % (95-97); ARTERIAL BLOOD GAS PCO2 37.8 mmHg (35-45); ARTERIAL BLOOD GAS PH 7.343 (7.35-7.45)
--- NOTE | 2018-08-29 15:52 | NUR ---
IV VERSED GIVEN PER ORDER OF DR APPIAH.
--- NOTE | 2018-08-29 16:06 | NUR ---
TYLENOL GIVEN FOR TYMPANIC TEMP OF 100.3.
--- NOTE | 2018-08-29 16:45 | NUR ---
PT'S RECTAL TEMP PF 101.5. HR 130'S. MOTRIN GIVEN PER PRN ORDER.
[2018-08-30] VITALS (12 sets, daily range): BP systolic 104–136; BP diastolic 44–82
[2018-08-30 05:51] LABS: ALBUMIN 2.7 gm/dl (3.1-4.5); BUN 15 mg/dl (7-24); CHLORIDE 112 mmol/L (98-107); CREATININE 0.87 mg/dL (0.70-1.30); PHOSPHOROUS 2.8 mg/dL (2.5-4.9); POTASSIUM 3.8 mmol/L (3.5-5.1); SGOT/AST 62 IU/L (3-35); SGPT/ALT 119 U/L (12-78); SODIUM 143 mmol/L (136-145)
[2018-08-30 05:54] LABS: ALKALINE PHOSPHATASE 49 U/L (45-117); TOTAL PROTEIN 6.5 gm/dL (6.4-8.2)
[2018-08-30 06:24] LABS: HEMATOCRIT 39.3 % (42.0-52.0); MEAN CELL VOLUME 107.7 fl (80.0-94.0); MEAN CORPUSCULAR HGB 34.5 pg (27.0-31.0); MEAN CORPUSCULAR HGB CONC 32.1 g/dl (33.0-37.0); MEAN PLATELET VOLUME 11.6 fl (9.6-12.3); PLATELET COUNT AUTOMATED 123 10*3/uL (130-400); RED BLOOD COUNT 3.65 10*6/uL (4.50-5.90); RED CELL DISTRI WIDTH 14.5 % (0-14.5); WHITE BLOOD COUNT 10.2 10*3/uL (4.8-10.8)
[2018-08-30 06:35] LABS: HEMOGLOBIN 12.6 g/dl (14.0-18.0)
[2018-08-30 07:05] LABS: ATYPICAL LYMPHS 1 % (0-0); TOTAL CELLS COUNTED 100 #CELLS; TOXIC GRANULATION SLIGHT
[2018-08-30 07:06] LABS: BURR CELLS FEW; PLATELET SUFFICIENCY LOW (NORMAL)
--- NOTE | 2018-08-30 07:30 | NUR ---
24 HR chart check completed.
[2018-08-30 07:56] LABS: ABG BASE EXCESS -3.4 mmol/L (-2.0-2.0); ABG HCO3 20.6 mmol/l (22-26); ABG O2 SATURATION 96.8 % (95-97); ARTERIAL BLOOD GAS PCO2 36.8 mmHg (35-45); ARTERIAL BLOOD GAS PH 7.371 (7.35-7.45); ARTERIAL BLOOD GAS PO2 90.2 mmHg (80-90)
--- NOTE | 2018-08-30 09:00 | NUR ---
Importer Or Exporter in to see patient. He is currently intubated. Discharge plan undecided at this time.
[2018-08-30 10:10] LABS: ABG BASE EXCESS -4.3 mmol/L (-2.0-2.0); ABG HCO3 23.3 mmol/l (22-26); ABG O2 SATURATION 91.8 % (95-97); ARTERIAL BLOOD GAS PCO2 59.1 mmHg (35-45); ARTERIAL BLOOD GAS PH 7.228 (7.35-7.45); ARTERIAL BLOOD GAS PO2 72.8 mmHg (80-90)
[2018-08-30 10:28] LABS: ABG BASE EXCESS -3.6 mmol/L (-2.0-2.0); ABG O2 SATURATION 70.7 % (95-97); ARTERIAL BLOOD GAS PCO2 56.9 mmHg (35-45); ARTERIAL BLOOD GAS PH 7.249 (7.35-7.45); ARTERIAL BLOOD GAS PO2 41.4 mmHg (80-90)
--- NOTE | 2018-08-30 11:19 | NUR ---
TEMP OF 100.8 RECTALLY. TYLENOL 500MG ADMINISTERED. ENDOTRACHEAL TUBE ADVANCED [address] EDUARDO'S REQUEST. ABG DRAWN AND DR EDUARDO DID MAKE VENT CHANGES.
[2018-08-30 15:16] LABS: ABG BASE EXCESS -2.2 mmol/L (-2.0-2.0); ABG HCO3 23.6 mmol/l (22-26); ABG O2 SATURATION 97.4 % (95-97); ARTERIAL BLOOD GAS PCO2 47.7 mmHg (35-45); ARTERIAL BLOOD GAS PH 7.318 (7.35-7.45); ARTERIAL BLOOD GAS PO2 92.3 mmHg (80-90)
--- NOTE | 2018-08-30 21:30 | NUR ---
DR. SHAW IN TO SEE PATIENT AND DISCUSS PLAN OF CARE. PATIENT'S DAUGHTER WAS PRESENT DURING THIS.
[2018-08-31] VITALS (12 sets, daily range): BP systolic 103–134; BP diastolic 48–86
--- NOTE | 2018-08-31 01:10 | NUR ---
PATIENT GIVEN TYLENOL FOR TEMP OF 101.4. WILL CONTINUE TO MONITOR AND REASSESS PATIENT.
[2018-08-31 06:16] LABS: HEMATOCRIT 37.5 % (42.0-52.0); HEMOGLOBIN 11.8 g/dl (14.0-18.0); MEAN CELL VOLUME 105.9 fl (80.0-94.0); MEAN CORPUSCULAR HGB 33.3 pg (27.0-31.0); MEAN CORPUSCULAR HGB CONC 31.5 g/dl (33.0-37.0); MEAN PLATELET VOLUME 11.3 fl (9.6-12.3); PLATELET COUNT AUTOMATED 146 10*3/uL (130-400); RED BLOOD COUNT 3.54 10*6/uL (4.50-5.90); RED CELL DISTRI WIDTH 14.1 % (0-14.5); WHITE BLOOD COUNT 9.6 10*3/uL (4.8-10.8)
[2018-08-31 06:37] LABS: ALBUMIN 2.6 gm/dl (3.1-4.5); BUN 16 mg/dl (7-24); CHLORIDE 109 mmol/L (98-107); CREATININE 0.89 mg/dL (0.70-1.30); POTASSIUM 3.4 mmol/L (3.5-5.1); SGOT/AST 74 IU/L (3-35); SGPT/ALT 103 U/L (12-78); SODIUM 143 mmol/L (136-145); TOTAL PROTEIN 6.7 gm/dL (6.4-8.2)
[2018-08-31 06:38] LABS: ALKALINE PHOSPHATASE 50 U/L (45-117)
[2018-08-31 08:01] LABS: DOHLE BODIES FEW; PLATELET SUFFICIENCY NORMAL (NORMAL); TOTAL CELLS COUNTED 100 #CELLS; TOXIC GRANULATION SLIGHT
[2018-08-31 08:10] LABS: PHOSPHOROUS 1.9 mg/dL (2.5-4.9)
[2018-08-31 08:13] LABS: ABG BASE EXCESS 1.4 mmol/L (-2.0-2.0); ABG HCO3 26.1 mmol/l (22-26); ABG O2 SATURATION 95.7 % (95-97); ARTERIAL BLOOD GAS PCO2 44.6 mmHg (35-45); ARTERIAL BLOOD GAS PH 7.387 (7.35-7.45); ARTERIAL BLOOD GAS PO2 73.9 mmHg (80-90)
--- NOTE | 2018-08-31 09:00 | NUR ---
Boiler Repair Supervisor in to see patient. He is currently intubated. Discharge plan undecided at this time.
--- NOTE | 2018-08-31 10:57 | NUR ---
DR EDUARDO INTO ASSESS PT AND DECREASED O2 TO 55% AND ALSO WILL SCHELDULE BRONCH FOR AM IN OR.
[2018-09-01] VITALS (12 sets, daily range): BP systolic 128–159; BP diastolic 71–104
[2018-09-01 05:48] LABS: ALBUMIN 2.4 gm/dl (3.1-4.5); ALKALINE PHOSPHATASE 54 U/L (45-117); BUN 15 mg/dl (7-24); CHLORIDE 109 mmol/L (98-107); CREATININE 0.56 mg/dL (0.70-1.30); POTASSIUM 3.4 mmol/L (3.5-5.1); SGOT/AST 68 IU/L (3-35); SGPT/ALT 102 U/L (12-78); SODIUM 146 mmol/L (136-145); TOTAL PROTEIN 7.1 gm/dL (6.4-8.2); VANCOMYCIN TROUGH 17.4 ug/mL (10-20)
[2018-09-01 05:52] LABS: HEMATOCRIT 37.2 % (42.0-52.0); MEAN CELL VOLUME 105.7 fl (80.0-94.0); MEAN CORPUSCULAR HGB 34.1 pg (27.0-31.0); MEAN CORPUSCULAR HGB CONC 32.3 g/dl (33.0-37.0); MEAN PLATELET VOLUME 10.7 fl (9.6-12.3); PLATELET COUNT AUTOMATED 187 10*3/uL (130-400); RED BLOOD COUNT 3.52 10*6/uL (4.50-5.90); RED CELL DISTRI WIDTH 14.1 % (0-14.5); WHITE BLOOD COUNT 6.6 10*3/uL (4.8-10.8)
[2018-09-01 06:31] LABS: PLATELET SUFFICIENCY NORMAL (NORMAL); TOTAL CELLS COUNTED 100 #CELLS
[2018-09-01 06:32] LABS: POLYCHROMASIA SLIGHT
[2018-09-01 06:33] LABS: ACT PARTIAL THROMBO TIME 25.9 SECONDS (20.0-32.1); INTERNATIONAL NORM RATIO 0.9 (2.0-3.5)
[2018-09-01 08:06] LABS: ABG BASE EXCESS 1.1 mmol/L (-2.0-2.0); ABG HCO3 25.2 mmol/l (22-26); ABG O2 SATURATION 97.3 % (95-97); ARTERIAL BLOOD GAS PCO2 40.1 mmHg (35-45); ARTERIAL BLOOD GAS PH 7.415 (7.35-7.45); ARTERIAL BLOOD GAS PO2 90.9 mmHg (80-90)
--- NOTE | 2018-09-01 11:05 | NUR ---
PATIENT ARRIVED BACK FROM OR FOR BRONCH. VITAL SIGNS STABLE. FAMILY IN WAITING ROOM.
--- NOTE | 2018-09-01 11:26 | NUR ---
DR EDUARDO ON THE FLOOR REQUESTING PATIENTS FAMILY TO BE CALLED BACK IN, AT THIS TIME HE TITRATED PATIENTS OXYEN DOWN FROM 60% TO 50% AND TO HAVE BLOOD GAS IN 2 HOURS FAMILY AT BEDSIDE DISCUSSING CARE WITH DR EDUARDO
--- NOTE | 2018-09-01 11:40 | NUR ---
1045: PT TRANSPORTED TO OR FOR BRONCHOSCOPY WITHOUT INCIDENCE. PT BAGGED WITH 100% O2. 1100 PT TRANSPORTED TO ICU WITHOUT INCIDENCE. PT BAGGED WITH 100% O2. 1110 FIO2 DECREASED TO 45% PER DR EDUARDO.
[2018-09-01 13:29] LABS: ABG BASE EXCESS 1.2 mmol/L (-2.0-2.0); ABG HCO3 26.3 mmol/l (22-26); ARTERIAL BLOOD GAS PCO2 46.5 mmHg (35-45); ARTERIAL BLOOD GAS PH 7.371 (7.35-7.45); ARTERIAL BLOOD GAS PO2 56.5 mmHg (80-90)
[2018-09-02] VITALS (12 sets, daily range): BP systolic 115–144; BP diastolic 73–108
--- NOTE | 2018-09-02 | NUR ---
PATIENT HAD A BROWN LIQUID BOWEL MOVEMENT FOLLOWED BY ANOTHER BOWEL MOVEMENT. RECTAL TUBE PLACED SINCE PATIENT WAS GIVEN LAXATIVES AND HAVING INCREASED FREQUENCY IN BOWEL MOVEMENTS WHILE UNDER SEDATION.
[2018-09-02 05:16] LABS: HEMATOCRIT 39.5 % (42.0-52.0); HEMOGLOBIN 12.9 g/dl (14.0-18.0); MEAN CELL VOLUME 103.7 fl (80.0-94.0); MEAN CORPUSCULAR HGB 33.9 pg (27.0-31.0); MEAN CORPUSCULAR HGB CONC 32.7 g/dl (33.0-37.0); MEAN PLATELET VOLUME 10.9 fl (9.6-12.3); PLATELET COUNT AUTOMATED 210 10*3/uL (130-400); RED BLOOD COUNT 3.81 10*6/uL (4.50-5.90); RED CELL DISTRI WIDTH 13.6 % (0-14.5); WHITE BLOOD COUNT 7.1 10*3/uL (4.8-10.8)
[2018-09-02 05:28] LABS: ALBUMIN 2.5 gm/dl (3.1-4.5); ALKALINE PHOSPHATASE 53 U/L (45-117); BUN 14 mg/dl (7-24); CHLORIDE 108 mmol/L (98-107); CREATININE 0.58 mg/dL (0.70-1.30); PHOSPHOROUS 3.1 mg/dL (2.5-4.9); POTASSIUM 3.3 mmol/L (3.5-5.1); SGOT/AST 77 IU/L (3-35); SGPT/ALT 113 U/L (12-78); SODIUM 144 mmol/L (136-145); TOTAL PROTEIN 7.1 gm/dL (6.4-8.2)
[2018-09-02 05:52] LABS: BASOPHILS 1 % (0-1); PLATELET SUFFICIENCY NORMAL (NORMAL); TOTAL CELLS COUNTED 100 #CELLS
--- NOTE | 2018-09-02 08:00 | NUR ---
PT REMAINS INTUBATED WITH #7.5 ENDOTUBE,27 CM AT THE LIP. PT REMAINS SEDATED ON IPRIVAN GTT AT 40MICS. PT AROUSES TO STIMULI. VSS. PT SUCTIONED FOR A SCANT AMOUNT OF WHITE SPUTUM. LUNG FIEDLS DIM. OGT PLACEMENT VERIFIED WITH AN AIR BOLUS. TUBE FEEDINGS REMAIN AT 20CC/HR. NO RESIDUAL NOTED. SMITH PATENT FOR DARK THERON URINE. RECTAL SMITH PATENT FOR BROWN LIQUID STOOL. NO PERIPHERAL EDEMA AT THIS TIME. PT ON ROTATION MODE ON BED. WILL CONTINUE TO MONITOR PT.
[2018-09-02 08:22] LABS: ABG HCO3 25.8 mmol/l (22-26); ABG O2 SATURATION 98.8 % (95-97); ARTERIAL BLOOD GAS PH 7.481 (7.35-7.45)
[2018-09-02 13:05] LABS: ACID FAST SPEC PROCESSING Concentration (.)
--- NOTE | 2018-09-02 15:07 | NUR ---
PT'S FAMILY IN TO VISIT. UPDATED THEM ON PT'S CONDITION AND PLAN OF CARE.
--- NOTE | 2018-09-02 16:53 | NUR ---
RESP. HERE TO MAKE VENT SETTING CHANGES ORDERED BY DR EDUARDO.
--- NOTE | 2018-09-02 16:54 | NUR ---
1648 VENT CHANGES: AC RATE DECREASED TO 18 FIO2 DECREASED TO 40 5
--- NOTE | 2018-09-02 18:37 | NUR ---
PT AWAKE AND AGITATED. RR 29. HR LOW 100'S, BP 141/102. IV DIPRIVAN INCREASED TO 50MIC/KG/MIN AND IV ATIVAN GIVEN PER PRN ORDER.
--- NOTE | 2018-09-02 19:35 | NUR ---
PT RESTING. HR 86, RR 24, BP 136/88. EARLIER ATIVAN EFFECTIVE
[2018-09-02 20:09] LABS: ABG BASE EXCESS 1.6 mmol/L (-2.0-2.0); ABG HCO3 25.9 mmol/l (22-26); ABG O2 SATURATION 96.1 % (95-97); ARTERIAL BLOOD GAS PCO2 40.8 mmHg (35-45); ARTERIAL BLOOD GAS PH 7.416 (7.35-7.45); ARTERIAL BLOOD GAS PO2 75.7 mmHg (80-90)
--- NOTE | 2018-09-02 20:22 | NUR ---
PT. RESTING COMFORTABLY. ZOSYN INFUSING ORDERED VIA DISTAL PORT OF RIGHTIJ MLC. LUNGS DIMINISHED BILAT, PULSE OX 93% ON 40% FIO2. ABDOMEN SOFT, NONDISTENDED AND NORMO. NO PERIPHERAL EDEMA NOTED. SMITH DRAINING A CLOUDY GREEN URINE. RECTAL TUBE DRAINING A LIQUID BROWN BM. PULMOCARE TUBE FEEDING AT 20CC/HR, PLACEMENT CONFIRMED WITH AIR BOLUS AND 10CC'S RESIDUAL NOTED. DIPROVAN INFUSING AT 50 MICS. PT. GIVEN ORAL MOUTH CARE AND SUCTIONED FOR LARGE AMT OF CLEAR SECRETIONS ORALLY AND MODERATE AMT OF YELLOW/WHITE SECRETIONS VIA ENDO. SOFT WRIST RESTRAINTS ON BILAT TO PREVENT ACCIDENTAL SELF-EXTUBATION. MARLO BOLIVAR RN
--- NOTE | 2018-09-02 20:31 | NUR ---
DR. EDUARDO NOTIFIED OF ABG RESULTS, NO FURTHER ORDERS RECEIVED. MARLO BOLIVAR RN
[2018-09-03] VITALS (8 sets, daily range): BP systolic 116–156; BP diastolic 75–103
--- NOTE | 2018-09-03 04:27 | NUR ---
PT. GIVEN ATIVAN ORDERED AT 0422, IMMEDIATELY EFFECTIVE FOR ANXIETY. MARLO BOLIVAR RN
[2018-09-03 05:46] LABS: ALBUMIN 2.6 gm/dl (3.1-4.5); BUN 10 mg/dl (7-24); CHLORIDE 105 mmol/L (98-107); CREATININE 0.59 mg/dL (0.70-1.30); SGOT/AST 80 IU/L (3-35); SGPT/ALT 112 U/L (12-78); SODIUM 141 mmol/L (136-145)
[2018-09-03 05:48] LABS: ALKALINE PHOSPHATASE 50 U/L (45-117); TOTAL PROTEIN 6.9 gm/dL (6.4-8.2)
[2018-09-03 05:59] LABS: HEMATOCRIT 36.9 % (42.0-52.0); MEAN CELL VOLUME 103.9 fl (80.0-94.0); MEAN CORPUSCULAR HGB 33.8 pg (27.0-31.0); MEAN CORPUSCULAR HGB CONC 32.5 g/dl (33.0-37.0); MEAN PLATELET VOLUME 11.1 fl (9.6-12.3); PLATELET COUNT AUTOMATED 233 10*3/uL (130-400); RED BLOOD COUNT 3.55 10*6/uL (4.50-5.90); RED CELL DISTRI WIDTH 13.4 % (0-14.5); WHITE BLOOD COUNT 6.3 10*3/uL (4.8-10.8)
[2018-09-03 07:12] LABS: BASOPHILS 2 % (0-1); POLYCHROMASIA SLIGHT; TOTAL CELLS COUNTED 100 #CELLS; TOXIC GRANULATION MODERATE
[2018-09-03 07:13] LABS: PLATELET SUFFICIENCY NORMAL (NORMAL)
--- NOTE | 2018-09-03 08:00 | NUR ---
Mail Weigher in to see patient. He is currently intubated. Discharge plan undecided at this time.
[2018-09-03 08:04] LABS: ABG BASE EXCESS 2.4 mmol/L (-2.0-2.0); ABG HCO3 25.8 mmol/l (22-26); ABG O2 SATURATION 98.4 % (95-97); ARTERIAL BLOOD GAS PH 7.456 (7.35-7.45); ARTERIAL BLOOD GAS PO2 94.5 mmHg (80-90)
--- NOTE | 2018-09-03 08:10 | NUR ---
DR. EDUARDO HERE AND SEDATION TURNED OFF PER DR. EDUARDO
--- NOTE | 2018-09-03 10:45 | NUR ---
ABG'S OBTAINED FROM LEFT RADIAL AND SENT TO LAB ON ICE
[2018-09-03 10:48] LABS: ABG BASE EXCESS 2.8 mmol/L (-2.0-2.0); ABG HCO3 26.2 mmol/l (22-26); ARTERIAL BLOOD GAS PCO2 37.1 mmHg (35-45); ARTERIAL BLOOD GAS PH 7.462 (7.35-7.45); ARTERIAL BLOOD GAS PO2 79.7 mmHg (80-90)
--- NOTE | 2018-09-03 11:18 | NUR ---
MESSAGE LEFT WITH DR. EDUARDO'S OFFICE REGARDING ABG RESULTS
--- NOTE | 2018-09-03 12:00 | NUR ---
WEIGHTED NGT PLACED IN LEFT NARE. PCXR ORDERED. COULD NOT VERIFY PLACEMENT OF NGT. NGT REMOVED AND ATTEMPTED IN RIGHT NARE. A LARGE AMOUNT BLOOD NOTED WHEN USING DENISE. HE THEN BECAME VERY RESTLESS, MOVING IN BED AND KICKING STAFF. NGT REMOVED QUICKLY IT WAS NOT IN. EXTUBATED. IMMEDIATLEY USING PROFANITY AND ASKING FOR "GRANDAD AND YELLING FOR KATELIN." ATTEMPTED TO REDIRECT UNSUCESSFUL. GLO SANTIAGO CALLED.
--- NOTE | 2018-09-03 12:30 | NUR ---
HAYES BACA GEODON GIVEN DURING THE CODE PAMELA
--- NOTE | 2018-09-03 12:54 | NUR ---
MOTHER AT BEDSIDE. TEARFUL. PULSE OX 89-90% ON 5L NASAL CANNULA.
--- NOTE | 2018-09-03 14:35 | NUR ---
RESTING WITH EYES CLOSED. HEART RATE 94. PULSE OX 98% ON 6L HIGH FLOW NASAL CANNULA.
--- NOTE | 2018-09-03 20:26 | NUR ---
PT. RESTING IN BED, SLEEPING INTERMITTENTLY. RIJ MLC INTACT, ZOSYN INFUSING VIA PROX PORT OF RIJ MLC. LUNGS CLEAR BUT DIMINISHED BILAT, PULSE OX 94% ON 6L HI FLOW 02. ABDOMEN SOFT, NONDISTENDED AND NORMO. DEPENDENT EDEMA OF ARMS/HANDS. RECTAL TUBE INTACT DRAINING A BROWN LIQUID BM. SMITH CATHETER DRAINING A CLEAR YELLOW URINE. PT. REQUESTING SOMETHING TO EAT OR DRINK, EXPLAINED NPO STATUS POST EXTUBATION. PT. COMPLIANT AT PRESENT. SOFT WRIST RESTRAINTS BILAT REMOVED DUE TO COOPERATIVE STATUS. MARLO BOLIVAR RN
[2018-09-04] VITALS: BP 135/81
--- NOTE | 2018-09-04 01:21 | NUR ---
HALDOL GIVEN ORDERED FOR RESTLESSNESS AND AGGITATION. REMAINS COOPERATIVE BUT SAYS HE FEELS LIKE JUMPING OUT OF HIS SKIN. MARLO BOLIVAR RN
[2018-09-04 04:00] VITALS: BP 128/81
[2018-09-04 04:57] LABS: HEMATOCRIT 37.3 % (42.0-52.0); HEMOGLOBIN 12.3 g/dl (14.0-18.0); MEAN CELL VOLUME 101.9 fl (80.0-94.0); MEAN CORPUSCULAR HGB 33.6 pg (27.0-31.0); MEAN PLATELET VOLUME 10.3 fl (9.6-12.3); PLATELET COUNT AUTOMATED 246 10*3/uL (130-400); RED BLOOD COUNT 3.66 10*6/uL (4.50-5.90); RED CELL DISTRI WIDTH 13.2 % (0-14.5); WHITE BLOOD COUNT 8.1 10*3/uL (4.8-10.8)
[2018-09-04 06:27] LABS: ALBUMIN 2.5 gm/dl (3.1-4.5); ALKALINE PHOSPHATASE 52 U/L (45-117); BUN 11 mg/dl (7-24); CHLORIDE 108 mmol/L (98-107); CREATININE 0.65 mg/dL (0.70-1.30); POTASSIUM 3.1 mmol/L (3.5-5.1); SGOT/AST 62 IU/L (3-35); SGPT/ALT 100 U/L (12-78); SODIUM 143 mmol/L (136-145); TOTAL PROTEIN 6.8 gm/dL (6.4-8.2)
[2018-09-04 06:36] LABS: BASOPHILS 2 % (0-1); PLATELET SUFFICIENCY NORMAL (NORMAL); POLYCHROMASIA SLIGHT; TOTAL CELLS COUNTED 100 #CELLS
[2018-09-04 06:37] LABS: TOXIC GRANULATION MODERATE
[2018-09-04 08:00] VITALS: BP 128/70
--- NOTE | 2018-09-04 08:00 | NUR ---
PT AAOX3. VSS. LUNG CHACKO DIM. PT DENIES COUGH AT THIS TIME. ABD. SOFT WITH ACTIVE BOWEL SOUNDS. SMITH PATENT FOR CLEAR YELLOW URINE. RECTAL TUBE PATENT FOR BROWN LIQUID STOOL. VINICIUS YANEZ ON PER ORDER.
--- NOTE | 2018-09-04 09:24 | NUR ---
MEDICATED PT PER PRN ORDER WITH ROBAXIN FOR C/O MUSCLE ACHES AND MOTRIN FOR ANKLE PAIN THAT RATES 6/[address] EDUARDO IN TO SEE PT. UPDATED HIM ON PT'S CONDITION.
--- NOTE | 2018-09-04 10:00 | NUR ---
PT STATES RELIEF OF MUSCLE ACHES AND ANKLE PAIN WITH EARLIER MORTIN AND ROBAXIN.
--- NOTE | 2018-09-04 10:22 | NUR ---
PT'S PARENTS IN TO SEE PT. UPDATED THEM ON PT'S CONDITION AND PLAN OF CARE.
[2018-09-04 12:00] VITALS: BP 105/65
--- NOTE | 2018-09-04 12:02 | NUR ---
PT CONTINUES TO VISIT WITH HIS PARENTS.
--- NOTE | 2018-09-04 14:07 | NUR ---
Discharge plan undetermined at this time.
[2018-09-04 16:00] VITALS: BP 146/71
--- NOTE | 2018-09-04 16:00 | NUR ---
SMITH CATH AND RECTAL TUBE D/C'D INTACT. PT TOLERATED PROCEDURES WELL. PT BATHED AND LINENS CHANGED.
--- NOTE | 2018-09-04 17:28 | NUR ---
PT SITTING IN CHAIR VISITING WITH HIS FAMILY.
--- NOTE | 2018-09-04 18:24 | NUR ---
PT SITTING IN THE CAHIR EATING DINNER. PT TOLERTING IT WELL.
[2018-09-04 20:00] VITALS: BP 126/86
--- NOTE | 2018-09-04 20:45 | NUR ---
PT. RESTING IN BED WATCHING TV AND TEXTING ON PHONE. REMAINS ALERT AND ORIENTED x3, COOPERATIVE AND PLEASANT. HEP LOCKS x2 IN RA. LUNGS DIMINISHED BUT CLEAR BILAT, PULSE OX 96% ON RA. ABDOMEN SOFT, NONDISTENDED AND NORMO. RIJ MLC HAS ZOSYN INFUSING. DEPENDENT EDEMA OF UPPER ARMS AND HANDS. UP IN CHIAR PRIOR, CURRENTLY BACK TO BED. MARLO BOLIVAR RN
--- NOTE | 2018-09-04 23:38 | NUR ---
PT. GIVEN SERAQUEL, BENTYL, DESYREL, ROBAXIN, AND VISTARIL ORDERED AT 2100, PT. CURRENTLY SLEEPING, ALL THE ABOVE EFFECTIVE. MARLO BOLIVAR RN
[2018-09-05] VITALS: BP 116/76
--- NOTE | 2018-09-05 02:07 | NUR ---
VISTARIL AND HALDOL GIVEN ORDERED FOR ANXIETY AND PER PT. REQUEST. MARLO BOLIVAR RN
[2018-09-05 04:00] VITALS: BP 102/63
--- NOTE | 2018-09-05 07:50 | NUR ---
PT TRANSFERED TO 421 VIA WC. PT REPORT GIVEN EARLIER TO RECEIVING NURSE.
[2018-09-05 08:00] VITALS: BP 118/66
--- NOTE | 2018-09-05 08:53 | NUR ---
Spoke to Savannah about patient requesting inpatient alcohol rehab. She states she will see the patient.
--- NOTE | 2018-09-05 09:00 | NUR ---
Drafting Clerk in to talk to patient. Patient states lives at [facility]. There are 0 steps in the home. Physician: Dr. Gaby Delcid Pharmacy: [facility] Home health services: none Patient's level of ADLs: INDEPENDENT Patient has working utilities: yes DME: none Follow-up physician's appointment after d/c: will be made by the hospitalist nurse director upon discharge Does patient want to access PORTAL?: no Discharge plan discussed with patient. He was living at the [facility] and is not able to return there. He is independent in his ADLs and ambulation. Discussed discharge planning services and he would like to go to an inpatient rehab. If he is not able to go to inpatient rehab he will go stay with his uncle and aunt. Will discuss with Savannah Riojas about visiting with patient. JOSE M SALMERON
--- NOTE | 2018-09-05 10:00 | NUR ---
Discussed the patient with Robel Nuñez, in further detail. He states he has been at multiple rehabs before and he had a bed at [facility] prior to being admitted to the hospital and wants to see if he can go there. He states he has tried the Vivitrol shot previously and he didn't like the way it made him feel. He would like suboxone. Savannah states she will see patient.
--- NOTE | 2018-09-05 11:31 | NUR ---
Called to patient's room regarding inpatient rehab. Multiple family members at the bedside. Attempted to reach out to Savannah with no success. Will attempt again at a later time.
[2018-09-05 12:00] VITALS: BP 124/80
--- NOTE | 2018-09-05 12:47 | NUR ---
PATIENT MEETS [facility]. PATIENT WANTS TO GO TO [facility] FOR RESIDENTIAL TREATMENT. [place] STAFF WILL BE SENDING HIS ASSESSMENT TO FACILITY. [place] STAFF WILL FOLLOW UP. MANNY LUCAS B.A. MEDICAL TRANSCRIPTION
--- NOTE | 2018-09-05 14:30 | NUR ---
PHYSICAL THERAPY Patient evaluated on 4, full evaluation to follow. Continue with PT as per plan of care with fall and acute debility precautions. D/c PT when (i) and goals met. PAtient is moderate complexity via chart review, tests and evaluation: 17225. Thank you for this referral. Tenisha Perez,PT
--- NOTE | 2018-09-05 14:52 | NUR ---
Occupational THerapy evaluation completed on 4 with full eval to follow. Precautions include IV RUE, low complexity level 66578 via chart review, testing and evaluation. Recommend no further OT as patient is independent in ADls but somewhat impulsive and independent in functional mobility without a device. Recommend D/C home with no further services indicated. Anamika Martinez OTR/L
--- NOTE | 2018-09-05 14:58 | NUR ---
PATIENTS MOTHER CALLED WORRIED THAT WE ARE GOING TO DISCHARGE PATIENT WITHOUT PLACING HIM TO AN INPATIENT REHAB. PATIENT REQUESTED THAT WE CHANGE HIS PASSWORD SO THAT SHE CANNOT GET INFORMATION.
[2018-09-05 16:00] VITALS: BP 128/78
--- NOTE | 2018-09-05 16:04 | NUR ---
PATIENT HAS BEEN ACCEPTED TO [facility] FOR TOMORROW. [place] STAFF WILL SET UP TRANSPORTATION. THE FACILITY WANTS HIM THERE BEFORE 2PM. PATIENT AGREES AND UNDERSTANDS HIS AFTERCARE PLAN. MANNY LUCAS B.A. PROVIDER NETWORK ANALYST
[2018-09-05 20:00] VITALS: BP 145/86
[2018-09-06] VITALS: BP 128/87
[2018-09-06 07:26] LABS: BUN 13 mg/dl (7-24); CHLORIDE 111 mmol/L (98-107); CREATININE 0.69 mg/dL (0.70-1.30); POTASSIUM 3.2 mmol/L (3.5-5.1); SODIUM 144 mmol/L (136-145)
[2018-09-06 08:00] VITALS: BP 135/70
--- NOTE | 2018-09-06 08:22 | NUR ---
PHYSICAL THERAPY Informed consent given. Patient has no concerns or complaints. Patient says he is feeling much better. Patient was walking down lezama when this ABRASIVE MIXER arrived at his room. Patient ambulated with no assistive device and Close Supervision for 550' x 1 with no LOB or need for rest period. Patient ascended and descended x 10 steps with Close Supervision with no LOB or other difficulty. Patient has good endurance and good balance. Patient was left on EOB with call light within reach. Patient is Independent in room throughout the day and is walking the halls on his own. Patient was 1:1 with this ABRASIVE MIXER for 15 minutes total. NAINA FLORES ABRASIVE MIXER
--- NOTE | 2018-09-06 10:40 | NUR ---
[place] STAFF SET UP TRANSPORTATION FOR PATIENT TO BE TRANSPORTED TO [facility] FOR INPATIENT TREATMENT. MANNY LUCAS B.A. CYLINDER HEAD ASSEMBLER
[2018-09-06] MEDS ORDERED: LAMICTAL25 MG PO (10:55)
[2018-09-06] MEDS ORDERED: LEVOFLOXACIN750 M2 PO (10:55)
[2018-09-06] MEDS ORDERED: THERA TABLET400 MCG PO (10:55)
[2018-09-06] MEDS ORDERED: QUETIAPINE FUM100 M1 PO (10:55)
[2018-09-06] MEDS ORDERED: VENTOLIN,PR2 MG/5 ML INH (10:55)
[2018-09-06] MEDS ORDERED: NATURE'S BLEND F1 MG PO (10:55)
[2018-09-06] MEDS ORDERED: VITAMIN B-1100 M1 PO (10:55)
[2018-09-06 12:00] VITALS: BP 121/60
--- NOTE | 2018-09-06 14:40 | NUR ---
Discharge instructions reviewed with patient/family. Patient receptive and verbalizes understanding. Follow-up care arranged. Written instructions given to patient/family. SIMBA LANDAVERDE
--- NOTE | 2018-09-06 14:41 | NUR ---
DISCUSSED SMOKING CESSATION WITH PATIENT AND TALKED ABOUT HIS GOAL AFTER LEAVING [facility], MAINTAIN SOBRIETY. PATIENT THANKED STAFF.
--- NOTE | 2018-09-06 15:45 | NUR ---
Message left for [facility] at [phone] regarding transportation for patient. Mike from [facility] aware and calling [facility] to find out about his transportation. Awaiting return call.
--- NOTE | 2018-09-06 15:46 | NUR ---
PHYSICAL THERAPY CO-SIGN I approve of the Phyical Therapy notes written above. INNA CRUZ PT
--- NOTE | 2018-09-06 15:58 | NUR ---
Spoke to Shayy at [facility], , regarding transportation. She states they never set up transportation, the hospital normally sets it up. They do not take admissions after 3pm. They could probably do 4 or 4:30pm but it would be better for patient to come in the morning. Patient could arrive as early as 8 or 8:30am. Spoke to Mike in [facility] regarding [facility] not able to take patient tonight because of the timing. [facility] was scheduled to picking belt operator the patient in approximately 45 minutes. Mike will call [facility] back and schedule transportation for tomorrow morning. Hospitalist nurse director, nurse, union steward, and nursing ethylbenzene cracking supervisor notified. Patient is not currently in his room. Asked union steward to notify CM when patient returns to the floor.
[2018-09-06 16:00] VITALS: BP 124/90
--- NOTE | 2018-09-06 16:40 | NUR ---
Spoke with [facility] and they will be picking the patient up around 8am tomorrow. The name of the transpotation service is: [facility]. Micah Sims Fabricator [employer]sembl[employer]
--- NOTE | 2018-09-06 19:16 | NUR ---
PT REFUSED SATX PT IN NO DISTRESS
--- NOTE | 2018-09-06 19:20 | NUR ---
PT RESTING IN BED AT THIS TIME. HE DENIES ANY PAIN OR DISCOMFORT OR ANY NEEDS AT THIS TIME. RESPIRATIONS ARE EASY AND NONLABORED. BED IS LOCKED AND IN THE LOWEST POSITION, CALL LIGHT IS WITHIN REACH. WILL CONTINUE TO MONITOR PT.
[2018-09-06 20:00] VITALS: BP 145/92
--- NOTE | 2018-09-06 20:26 | NUR ---
PRN ORDER FOR MAALOX ADMINISTERED FOR COMPLAINTS OF HEART BURN & INDISGESTION. WILL MONITOR FOR EFFECTIVENESS OF MEDICATION.
[2018-09-07] VITALS: BP 103/56
--- NOTE | 2018-09-07 03:33 | NUR ---
24 HR chart check completed.
--- NOTE | 2018-09-07 06:00 | NUR ---
MEDICATED WITH MOTRIN PO PER PRN ORDER FOR C/O LEFT ARM PAIN. SEE EMAR. ALSO MEDICATED WITH PRILOSEC FOR HEARTBURN PER PT REQUEST. WALKING AROUND IN ROOM. WAITING FOR RIDE THIS AM TO BE DISCHARGED. CALL LIGHT IN REACH. SEE SHIFT ASSESSMENT.
--- NOTE | 2018-09-07 07:11 | NUR ---
Patient to be transported at 8am this morning by [facility] transportation to [facility].
[2018-09-07 08:00] VITALS: BP 118/84
--- NOTE | 2018-09-07 08:17 | NUR ---
Spoke to [facility] regarding transportation to [facility] today. Transportation will pick the patient up between 8 and 11 am. They will call the floor to notify of when they are here to pick the patient up.
--- NOTE | 2018-09-07 08:31 | NUR ---
ID STAFF FOLLOWED UP WITH PATIENT'S INSURANCE TO CONFIRM HIS RIDE TO [facility]. THEY REPORTED THAT THEY WILL PICK PATIENT UP BETWEEN 8AM AND 11AM. THE INSURANCE CONFIRMED WITH ID STAFF THAT THEY WILL CONTACT THE NURSES' STATION 15 MINUTES BEFORE ARRIVAL. MANNY LUCAS B.A. BALANCER SCALE
--- NOTE | 2018-09-07 09:35 | NUR ---
PT MEDICATED WITH TYLENOL PO PER PRN ORDER, SEE EMAR. FOR C/O LEFT ARM PAIN, RATES PAIN 5 ON PAIN SCALE 0-10. AMBULATORY IN THE ROOM. CALL SYMONE RICKS.
--- NOTE | 2018-09-07 10:30 | NUR ---
STATES MEDICATION HELPED.
--- NOTE | 2018-09-07 10:45 | NUR ---
CALLED MANNY FROM [facility] TO CALL REGARDING RIDE PT IS UPSET.
[2018-09-07 12:00] VITALS: BP 119/87
--- NOTE | 2018-09-07 12:20 | NUR ---
[facility] UP ON FLOOR STILL TRYING TO GET RIDE.
--- NOTE | 2018-09-07 15:46 | NUR ---
PT RIDE CAME PT ESCORTED TO CAR. VERBALIZED UNDERSTANDING OF DISCHARGE INSTRUCTIONS.
[2018-10-17 11:05] LABS: ACID FAST CULTURE Negative (.)
== END 2018-09-07 15:46 | DRG 896 ==
LOC: ED 20:43 → EDHOLD 23:10 → ICCU 23:10 → 4E 09-05 09:13
PROVIDERS: Emergency Medicine; Family Medicine; Internal Medicine; Internal Medicine Critical Care Medicine; Student in an Organized Health Care Education/Training Program; ADMIT Internal Medicine
PROC: 0BH17EZ Insertion of Endotracheal Airway into Trachea, Via Natural or Artificial Opening (ICD-10-PCS; principal; 2018-08-27)
PROC: 5A1955Z Respiratory Ventilation, Greater than 96 Consecutive Hours (ICD-10-PCS; 2018-08-27)
PROC: 02HV33Z Insertion of Infusion Device into Superior Vena Cava, Percutaneous Approach (ICD-10-PCS; 2018-08-29)
PROC: B548ZZA Ultrasonography of Superior Vena Cava, Guidance (ICD-10-PCS; 2018-08-29)
PROC: 0BC28ZZ Extirpation of Matter from Carina, Via Natural or Artificial Opening Endoscopic (ICD-10-PCS; 2018-09-01)
PROC: 0BC18ZZ Extirpation of Matter from Trachea, Via Natural or Artificial Opening Endoscopic (ICD-10-PCS; 2018-09-01)
PROC: 0BC98ZZ Extirpation of Matter from Lingula Bronchus, Via Natural or Artificial Opening Endoscopic (ICD-10-PCS; 2018-09-01)
PROC: 0BC48ZZ Extirpation of Matter from Right Upper Lobe Bronchus, Via Natural or Artificial Opening Endoscopic (ICD-10-PCS; 2018-09-01)
PROC: 0BC88ZZ Extirpation of Matter from Left Upper Lobe Bronchus, Via Natural or Artificial Opening Endoscopic (ICD-10-PCS; 2018-09-01)
PROC: 0BC58ZZ Extirpation of Matter from Right Middle Lobe Bronchus, Via Natural or Artificial Opening Endoscopic (ICD-10-PCS; 2018-09-01)
PROC: 0BC38ZZ Extirpation of Matter from Right Main Bronchus, Via Natural or Artificial Opening Endoscopic (ICD-10-PCS; 2018-09-01)
PROC: 0BC78ZZ Extirpation of Matter from Left Main Bronchus, Via Natural or Artificial Opening Endoscopic (ICD-10-PCS; 2018-09-01)
PROC: 0BC68ZZ Extirpation of Matter from Right Lower Lobe Bronchus, Via Natural or Artificial Opening Endoscopic (ICD-10-PCS; 2018-09-01)
PROC: 0BCB8ZZ Extirpation of Matter from Left Lower Lobe Bronchus, Via Natural or Artificial Opening Endoscopic (ICD-10-PCS; 2018-09-01)
DX: F10.231 Alcohol dependence with withdrawal delirium (principal); A41.9 Sepsis, unspecified organism; J96.01 Acute respiratory failure with hypoxia; J69.0 Pneumonitis due to inhalation of food and vomit; J15.6 Pneumonia due to other Gram-negative bacteria; R65.20 Severe sepsis without septic shock; E87.3 Alkalosis; E87.0 Hyperosmolality and hypernatremia; F10.221 Alcohol dependence with intoxication delirium; R74.0 Nonspecific elevation of levels of transaminase and lactic acid dehydrogenase [LDH]; F31.9 Bipolar disorder, unspecified; Y95 Nosocomial condition; E87.6 Hypokalemia; E83.39 Other disorders of phosphorus metabolism; K21.9 Gastro-esophageal reflux disease without esophagitis; R73.9 Hyperglycemia, unspecified; E66.01 Morbid (severe) obesity due to excess calories; I10 Essential (primary) hypertension; F17.210 Nicotine dependence, cigarettes, uncomplicated; F39 Unspecified mood [affective] disorder; D75.89 Other specified diseases of blood and blood-forming organs; F41.9 Anxiety disorder, unspecified; Z91.040 Latex allergy status; Z79.899 Other long term (current) drug therapy; T42.6X5A Adverse effect of other antiepileptic and sedative-hypnotic drugs, initial encounter; Y92.238 Other place in hospital as the place of occurrence of the external cause; Z68.27 Body mass index [BMI] 27.0-27.9, adult

== ENCOUNTER 2018-12-25 10:34 | Inpatient (IN) | payer OTHER ==
[~2018-12-25] VITALS: Ht 182.8 cm; Wt 91.3 kg
[~2018-12-25 10:34] MED LIST changes: +LEVOFLOXACIN750 M2 PO; +NATURE'S BLEND F1 MG PO; +THERA TABLET400 MCG PO; +VITAMIN B-1100 M1 PO
[2018-12-25 10:36] VITALS: BP 147/88
[2018-12-25 12:00] VITALS: BP 138/78
[2018-12-25 12:12] LABS: BASO % 0.7 % (0.0-1.0); EOS # 0.1 10*3/uL (0.0-0.4); EOS % 2.7 % (1.0-4.0); HEMATOCRIT 40.4 % (42.0-52.0); HEMOGLOBIN 13.6 g/dl (14.0-18.0); LYMPH # 1.2 10*3/uL (1.3-4.4); LYMPH % 40.1 % (27.0-41.0); MEAN CELL VOLUME 98.8 fl (80.0-94.0); MEAN CORPUSCULAR HGB 33.3 pg (27.0-31.0); MEAN CORPUSCULAR HGB CONC 33.7 g/dl (33.0-37.0); MONO # 0.4 10*3/uL (0.1-1.0); NEUT # 1.3 10*3/uL (2.3-7.9); NEUT % 44.2 % (47.0-73.0); PLATELET COUNT AUTOMATED 205 10*3/uL (130-400); RED BLOOD COUNT 4.09 10*6/uL (4.50-5.90); RED CELL DISTRI WIDTH 14.2 % (0-14.5); WHITE BLOOD COUNT 2.9 10*3/uL (4.8-10.8)
[2018-12-25 12:19] LABS: INTERNATIONAL NORM RATIO 0.9 (2.0-3.5)
[2018-12-25 12:28] LABS: ALBUMIN 4.3 gm/dl (3.1-4.5); ALKALINE PHOSPHATASE 73 U/L (45-117); BUN 14 mg/dl (7-24); CHLORIDE 104 mmol/L (98-107); CREATININE 0.75 mg/dL (0.70-1.30); POTASSIUM 3.9 mmol/L (3.5-5.1); SGOT/AST 117 IU/L (3-35); SGPT/ALT 136 U/L (12-78); SODIUM 139 mmol/L (136-145); TOTAL PROTEIN 7.9 gm/dL (6.4-8.2)
--- NOTE | 2018-12-25 12:35 | NUR ---
THIS PATIENT CAME TO THE FLOOR FROM THE ER VIA WHEEL CHAIR. ALERT AND ORIENTED X 3. ORIENTED TO ROOM AND CALL LIGHT. DENIES ANY ABNORMALTIES OR COMPLAINTS.
--- NOTE | 2018-12-25 12:49 | NUR ---
PATIENT MEETS [facility]. PATIENT WANTS TO FOLLOW UP WITH [facility] FOR RESIDENTIAL TREATMENT FOR HIS AFTERCARE PLAN. MANNY LUCAS B.A. REHABILITATION SERVICES AIDE
[2018-12-25] MEDS ORDERED: PRILOSEC20 M1 PO (14:47)
[2018-12-25 15:29] LABS: BILIRUBIN NEGATIVE (NEGATIVE); BLOOD NEGATIVE (NEGATIVE); CLARITY CLEAR (CLEAR); COLOR YELLOW (YELLOW); GLUCOSE NEGATIVE (NEGATIVE); KETONE 1+ (NEGATIVE); LEUKO ESTERASE NEGATIVE (NEGATIVE); NITRITE NEGATIVE (NEGATIVE); UROBILINOGEN 0.2 E.U./dl (0.2-1.0)
[2018-12-25 15:35] LABS: URINE AMPHETAMINES < 1000 (1000ng/ml); URINE BARBITURATES < 200 (200ng/ml); URINE BENZODIAZEPINES < 200 (200ng/ml); URINE CANNABINOIDS (THC) < 50 (50ng/ml); URINE COCAINE < 300 (300ng/ml); URINE METHADONE < 300 (300ng/ml); URINE OPIATES < 300 (300ng/ml)
[2018-12-25 15:41] LABS: URINE PHENCYCLIDINE < 25 (25ng/ml)
[2018-12-25 15:56] LABS: MUCOUS 3+; WBC 0-2 wbc/hpf (0-5)
[2018-12-25 16:00] VITALS: BP 127/73
--- NOTE | 2018-12-25 19:38 | NUR ---
24 HR chart check completed.
[2018-12-25 20:00] VITALS: BP 129/80
--- NOTE | 2018-12-25 23:55 | NUR ---
PATIENT IS RESTING IN BED WITH EASY AND REGULAR RESPERS ON ROOM AIR. ASSESMENT IS COMPLETE. PATIENT DENIES ANY WITHDRAWL SYMPTOMS BUT DOES APPEAR ANXIOUS. PRN ATIVAN PROVIDED AND PATIENT TOLERATED WELL. BED IS LOW, LOCKED, AND CALL LIGHT IS WITHIN REACH. WILL CONTINUE TO MONITOR, SEE SHIFT ASSESSMENT.
[2018-12-26] VITALS: BP 125/77
--- NOTE | 2018-12-26 01:00 | NUR ---
PRN ATIVAN GIVEN SEEMS EFFECTIVE, PATIENT IS SLEEPING WITH EASY AND REGULAR RESPERS ON ROOM AIR. CALL LIGHT IS WITHIN REACH.
--- NOTE | 2018-12-26 06:37 | NUR ---
PRN MAALOX, ROBAXIN, AND ATIVAN GIVEN AT THIS TIME FOR C/O MUSCLE ACHES, HEARTBURN, AND TREMOR FELT. CALL LIGHT IS WITHIN REACH.
[2018-12-26 08:00] VITALS: BP 142/93
--- NOTE | 2018-12-26 09:06 | NUR ---
MEDICATED WITH MOTRIN FOR C/O NECK PAIN.
[2018-12-26 12:00] VITALS: BP 129/83
[2018-12-26 16:00] VITALS: BP 147/87
--- NOTE | 2018-12-26 17:37 | NUR ---
PATIENT'S DISCHARGE REMAINS THE SAME. PATIENT WILL FOLLOW UP WITH [facility] FOR HIS AFTERCARE PLAN. MANNY LUCAS B.A. AUTOMATIC LINE SET UP MECHANIC
[2018-12-26 20:00] VITALS: BP 129/91
--- NOTE | 2018-12-26 20:07 | NUR ---
1929 UP AND ABOUT IN THE BULL. HEP LOCK INTACT. 1939 ROUTINE LIBRIUM GIVEN ORDERED. RESTING IN BED WATCHING TV. PLEASANT AND COOPERATIVE. NO TREMORS NOTED,
--- NOTE | 2018-12-26 21:22 | NUR ---
5 TRAZADONE GIVEN FOR SLEEP, MOTRIN FOR GENERALIZED DISCOMFORT AND ZOFRAN FOR NAUSEA. NO EMESIS NOTED.
[2018-12-27] VITALS: BP 124/78
--- NOTE | 2018-12-27 00:08 | NUR ---
EARLIER MEDS EFFECTIVE. RESTING IN BED WITH EYES CLOSED.
--- NOTE | 2018-12-27 06:03 | NUR ---
REMAINS WITHOUT C/O'S. HEP LOCK INTACT. NO SIGNS OF DT'S NOTED. CONDITION GUARDED.
[2018-12-27 06:47] LABS: BASO % 0.7 % (0.0-1.0); EOS # 0.2 10*3/uL (0.0-0.4); EOS % 6.9 % (1.0-4.0); HEMATOCRIT 39.5 % (42.0-52.0); HEMOGLOBIN 13.1 g/dl (14.0-18.0); LYMPH # 1.2 10*3/uL (1.3-4.4); LYMPH % 43.1 % (27.0-41.0); MEAN CELL VOLUME 101.8 fl (80.0-94.0); MEAN CORPUSCULAR HGB 33.8 pg (27.0-31.0); MEAN CORPUSCULAR HGB CONC 33.2 g/dl (33.0-37.0); MEAN PLATELET VOLUME 10.3 fl (9.6-12.3); MONO # 0.3 10*3/uL (0.1-1.0); MONO % 10.1 % (3.0-9.0); NEUT # 1.1 10*3/uL (2.3-7.9); NEUT % 38.9 % (47.0-73.0); PLATELET COUNT AUTOMATED 186 10*3/uL (130-400); RED BLOOD COUNT 3.88 10*6/uL (4.50-5.90); RED CELL DISTRI WIDTH 14.3 % (0-14.5); WHITE BLOOD COUNT 2.9 10*3/uL (4.8-10.8)
[2018-12-27 07:31] LABS: CHLORIDE 106 mmol/L (98-107); POTASSIUM 3.5 mmol/L (3.5-5.1); SODIUM 140 mmol/L (136-145)
[2018-12-27 07:57] LABS: ALBUMIN 3.7 gm/dl (3.1-4.5); ALKALINE PHOSPHATASE 64 U/L (45-117); BUN 14 mg/dl (7-24); CREATININE 0.63 mg/dL (0.70-1.30); SGOT/AST 61 IU/L (3-35); SGPT/ALT 92 U/L (12-78); TOTAL PROTEIN 6.9 gm/dL (6.4-8.2)
[2018-12-27 08:00] VITALS: BP 118/82
[2018-12-27 12:00] VITALS: BP 120/76
--- NOTE | 2018-12-27 14:51 | NUR ---
PATIENT IS GOING TO [facility] FOR HIS AFTERCARE PLAN. [place] STAFF WILL SET UP TRANSPORTATION. MANNY LUCAS B.A. AIR TRAFFIC CONTROL MANAGER
--- NOTE | 2018-12-27 15:03 | NUR ---
MEDICATED WITH MOTRIN PER ORDER AND REQUEST.
[2018-12-27 16:00] VITALS: BP 122/76
--- NOTE | 2018-12-27 17:02 | NUR ---
PATIENT LEFT FLOOR, UNABLE TO FIND. DR. MATHEWS NOTIFIED.
--- NOTE | 2018-12-27 17:48 | NUR ---
PATIENT IS BEING DISCHARGED ADMINISTRATIVELY, PATIENT BROKE PROTOCL AND LEFT THE FLOOR.
--- NOTE | 2018-12-27 17:53 | NUR ---
PATIENT REFUSING TO LEAVE. WILL NOT SIGN PAPERS STATES HE HAS NO WHERE TO GO AND NO ONE TO GET HIM. DR. MATHEWS CALLED AGAIN.
--- NOTE | 2018-12-27 17:59 | NUR ---
CUT OFF SAWYER AWARE PATIENT BEING DISCHARGED FOR LEAVING THE FLOOR.
--- NOTE | 2018-12-27 18:00 | NUR ---
DR. MATHEWS SPOKE TO PATIENT AND ENFORCED THE RULES THAT PATIENT IS TO LEAVE.
--- NOTE | 2018-12-27 18:25 | NUR ---
PATIENT WANTED THE POLICE TO TAKE HIM TO [facility]. THEN STATED HE WAS GONNA FAKE FALLING DOWN AND HURT HIS KNEE SO HE CAN STAY. SECURITY CALLED TO ESCORT PATIENT OUT.
== END 2018-12-27 18:25 | disposition left against medical advice (07) | DRG 770 ==
LOC: ED 10:34 → EDHOLD 11:09 → 5E 11:09
PROVIDERS: Internal Medicine; Student in an Organized Health Care Education/Training Program; ADMIT Internal Medicine
DX: F10.230 Alcohol dependence with withdrawal, uncomplicated (principal); R65.10 Systemic inflammatory response syndrome (SIRS) of non-infectious origin without acute organ dysfunction; F17.210 Nicotine dependence, cigarettes, uncomplicated; R74.0 Nonspecific elevation of levels of transaminase and lactic acid dehydrogenase [LDH]; D53.9 Nutritional anemia, unspecified; K21.9 Gastro-esophageal reflux disease without esophagitis; F41.9 Anxiety disorder, unspecified; Z53.21 Procedure and treatment not carried out due to patient leaving prior to being seen by health care provider; D72.810 Lymphocytopenia; R00.0 Tachycardia, unspecified; E66.9 Obesity, unspecified; Z91.040 Latex allergy status; Z87.01 Personal history of pneumonia (recurrent); Z79.899 Other long term (current) drug therapy; Z68.27 Body mass index [BMI] 27.0-27.9, adult

== ENCOUNTER 2019-05-20 14:31 | Inpatient (IN) | payer OTHER ==
[~2019-05-20] VITALS: Ht 182.9 cm; Wt 89.6 kg
[~2019-05-20 14:31] MED LIST changes: +PRILOSEC20 M1 PO
[2019-05-20 14:50] VITALS: BP 144/90
--- NOTE | 2019-05-20 15:43 | NUR ---
[place] STAFF SPOKE WITH PATIENT. PATIENT MEETS [facility]. PATIENT IS GOING TO [facility] FOR HIS AFTERCARE PLAN. MANNY LUCAS B.A. VICE PRESIDENT OF ADVERTISING
[2019-05-20 16:30] LABS: HEMATOCRIT 44.8 % (42.0-52.0); MEAN CELL VOLUME 104.7 fl (80.0-94.0); MEAN CORPUSCULAR HGB CONC 33.5 g/dl (33.0-37.0); MEAN PLATELET VOLUME 9.7 fl (9.6-12.3); PLATELET COUNT AUTOMATED 164 10*3/uL (130-400); RED BLOOD COUNT 4.28 10*6/uL (4.50-5.90); RED CELL DISTRI WIDTH 16.1 % (0-14.5); WHITE BLOOD COUNT 2.4 10*3/uL (4.8-10.8)
--- NOTE | 2019-05-20 16:30 | NUR ---
PATIENT PROVIDED WITH BOX LUNCH AT THIS TIME. ENCOURAGED TO PROVIDE URINE SAMPLE.
[2019-05-20 16:44] LABS: ALBUMIN 4.4 gm/dl (3.1-4.5); ALKALINE PHOSPHATASE 86 U/L (45-117); BUN 6 mg/dl (7-24); CHLORIDE 110 mmol/L (98-107); CREATININE 0.88 mg/dL (0.70-1.30); POTASSIUM 4.1 mmol/L (3.5-5.1); SGOT/AST 474 IU/L (3-35); SGPT/ALT 369 U/L (12-78); SODIUM 143 mmol/L (136-145); TOTAL PROTEIN 8.7 gm/dL (6.4-8.2)
[2019-05-20 16:46] LABS: ACETAMINOPHEN (TYLENOL) < 2.0 ug/ml (10-30)
[2019-05-20 16:51] LABS: BASOPHILS 2 % (0-1); PLATELET SUFFICIENCY NORMAL (NORMAL); TOTAL CELLS COUNTED 100 #CELLS
--- NOTE | 2019-05-20 17:10 | NUR ---
LAB CALLED WITH ELEVATED ETOH OF 4.65. LIOR NOTIFIED.
[2019-05-20 18:05] LABS: INTERNATIONAL NORM RATIO 0.9 (2.0-3.5)
[2019-05-20 18:30] LABS: BILIRUBIN NEGATIVE (NEGATIVE); BLOOD 2+ (NEGATIVE); CLARITY CLEAR (CLEAR); COLOR YELLOW (YELLOW); GLUCOSE NEGATIVE (NEGATIVE); KETONE NEGATIVE (NEGATIVE); LEUKO ESTERASE NEGATIVE (NEGATIVE); NITRITE NEGATIVE (NEGATIVE); SPECIFIC GRAVITY 1.005 (1.005-1.030); UROBILINOGEN 0.2 E.U./dl (0.2-1.0)
[2019-05-20 18:35] LABS: URINE AMPHETAMINES < 1000 (1000ng/ml); URINE BARBITURATES < 200 (200ng/ml); URINE BENZODIAZEPINES < 200 (200ng/ml); URINE CANNABINOIDS (THC) < 50 (50ng/ml); URINE COCAINE < 300 (300ng/ml); URINE METHADONE < 300 (300ng/ml); URINE OPIATES < 300 (300ng/ml)
[2019-05-20 18:37] LABS: BACTERIA 1+; HYALINE CAST 0-2; WBC 0-2 wbc/hpf (0-5)
[2019-05-20 18:38] LABS: URINE PHENCYCLIDINE < 25 (25ng/ml)
[2019-05-20 20:00] VITALS: BP 136/98
[2019-05-20 20:15] VITALS: BP 136/98
--- NOTE | 2019-05-20 20:15 | NUR ---
A 48, admitted to , under the services of GEORGE Mejia DO with a diagnosis of TRANSAMINITIS, ALCOHOL ABUSE. Chief complaint is SUBSTANCE ABUSE WITHDRAWAL. Patient arrived via ambulatory from ER. Monitor applied. Initial assessment completed. Vital signs taken and recorded. GEORGE MEJIA DO notified of admission to the unit. Orders received. See assessment for past medical history, medications and allergies. Patient and/or family oriented to unit. [facility]. Clothing/patient valuable form completed. IVÁN MONREAL
--- NOTE | 2019-05-20 20:52 | NUR ---
SECURITY CALLED TO [employer] PT BELONGINGS. 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
--- NOTE | 2019-05-20 21:26 | NUR ---
PT MEDICATED W/TRAZADONE TO HELP PROMOTE SLEEP AND NICOTROL INHALER GIVEN TO PT PER REQUEST. CALL LIGHT IN REACH. BLIND CLOSED AND LIGHTS TURNED OFF.
--- NOTE | 2019-05-20 22:00 | NUR ---
PT RESTING QUIETLY IN BED. PRN TRAZADONE EFFECTIVE. NO S/S OF WITHDRAWALS NOTED.
[2019-05-21] VITALS: BP 120/79
[2019-05-21 06:46] LABS: HEMATOCRIT 37.2 % (42.0-52.0); HEMOGLOBIN 12.2 g/dl (14.0-18.0); MEAN CELL VOLUME 104.8 fl (80.0-94.0); MEAN CORPUSCULAR HGB 34.4 pg (27.0-31.0); MEAN CORPUSCULAR HGB CONC 32.8 g/dl (33.0-37.0); MEAN PLATELET VOLUME 9.8 fl (9.6-12.3); PLATELET COUNT AUTOMATED 119 10*3/uL (130-400); RED BLOOD COUNT 3.55 10*6/uL (4.50-5.90); RED CELL DISTRI WIDTH 16.2 % (0-14.5)
[2019-05-21 06:54] LABS: WHITE BLOOD COUNT 1.9 10*3/uL (4.8-10.8)
--- NOTE | 2019-05-21 07:01 | NUR ---
DR. SMITH NOTIFIED OF WBC OF 1.9.
[2019-05-21 07:10] LABS: BASOPHILS 1 % (0-1); PLATELET SUFFICIENCY LOW (NORMAL); TOTAL CELLS COUNTED 100 #CELLS
[2019-05-21 07:14] LABS: ALBUMIN 3.6 gm/dl (3.1-4.5); ALKALINE PHOSPHATASE 67 U/L (45-117); BUN 8 mg/dl (7-24); CHLORIDE 111 mmol/L (98-107); CREATININE 0.73 mg/dL (0.70-1.30); POTASSIUM 3.7 mmol/L (3.5-5.1); SGOT/AST 358 IU/L (3-35); SGPT/ALT 297 U/L (12-78); SODIUM 142 mmol/L (136-145); TOTAL PROTEIN 6.7 gm/dL (6.4-8.2)
[2019-05-21 08:00] VITALS: BP 138/88
--- NOTE | 2019-05-21 10:54 | NUR ---
PATIENT HAS BEEN ACCEPTED TO [facility]. THE FACILITY WILL PROVIDE TRANSPORTATION ONCE PATIENT IS DISCHARGED FROM [facility]. MANNY LUCAS B.A. GLAZE SUPERVISOR
[2019-05-21 12:00] VITALS: BP 142/93
--- NOTE | 2019-05-21 14:57 | NUR ---
BENTYL 20 MG GIVEN FOR C/O CRAMPING.PT VOICES NO OTHER C/O AT THIS TIME. CALL LIGHT IN REACH.
[2019-05-21 16:00] VITALS: BP 158/96
--- NOTE | 2019-05-21 17:16 | NUR ---
ROBAXIN 750 MG AND ZOFRAN 4MG ODT GIVEN FOR C/O CRAMPING & NAUSEA.EDUCATION PROVIDED REGARDING D/D WITHDRAWAL AND CALL LIGHT USAGE.VOICES NO OTHER NEEDS AT THIS TIME. CALL LIGHT IN REACH.
--- NOTE | 2019-05-21 19:52 | NUR ---
PT C/O ANXIETY 10/24 PAIN 06/24 IN BACK. VISTERIL GIVEN FOR ANXIETY, MOTRIN GIVEN FOR PAIN.
[2019-05-21 20:00] VITALS: BP 152/92
--- NOTE | 2019-05-21 20:00 | NUR ---
ASSUMED CARE OF PT. ASSESSMENT COMPLETED. PT C/O MILD BACK PAIN AND BODY ACHES 06/24. PT HAS A MODERATE TREMOR AND DIAPHORESIS. VITAL SIGNS WITH NORMAL LIMITS. NO OTHER COMPLAINTS AT THIS TIME.
--- NOTE | 2019-05-21 20:30 | NUR ---
PT RATES ANXIETY 3/10; VISTERIL EFFECTIVE. DENIES PAIN; MOTRIN EFFECTIVE.
--- NOTE | 2019-05-22 | NUR ---
PA REPORTED BP OF 150/97. UP0ON RETAKE BY THIS 5RN, BP WAS 130/70.
[2019-05-22 00:15] VITALS: BP 130/70
[2019-05-22 07:45] LABS: HEMATOCRIT 38.5 % (42.0-52.0); HEMOGLOBIN 12.8 g/dl (14.0-18.0); MEAN CELL VOLUME 104.9 fl (80.0-94.0); MEAN CORPUSCULAR HGB 34.9 pg (27.0-31.0); MEAN CORPUSCULAR HGB CONC 33.2 g/dl (33.0-37.0); MEAN PLATELET VOLUME 10.3 fl (9.6-12.3); PLATELET COUNT AUTOMATED 144 10*3/uL (130-400); RED BLOOD COUNT 3.67 10*6/uL (4.50-5.90); RED CELL DISTRI WIDTH 15.4 % (0-14.5); WHITE BLOOD COUNT 2.1 10*3/uL (4.8-10.8)
[2019-05-22 08:00] VITALS: BP 138/92
[2019-05-22 08:07] LABS: ALBUMIN 3.5 gm/dl (3.1-4.5); BUN 9 mg/dl (7-24); CHLORIDE 107 mmol/L (98-107); CREATININE 0.67 mg/dL (0.70-1.30); POTASSIUM 3.5 mmol/L (3.5-5.1); SGOT/AST 241 IU/L (3-35); SGPT/ALT 259 U/L (12-78); SODIUM 139 mmol/L (136-145)
[2019-05-22 08:09] LABS: ALKALINE PHOSPHATASE 66 U/L (45-117); TOTAL PROTEIN 6.9 gm/dL (6.4-8.2)
[2019-05-22 08:33] LABS: ATYPICAL LYMPHS 1 % (0-0); BASOPHILS 1 % (0-1); TOTAL CELLS COUNTED 100 #CELLS
[2019-05-22 08:34] LABS: PLATELET SUFFICIENCY NORMAL (NORMAL)
[2019-05-22 12:00] VITALS: BP 148/87
--- NOTE | 2019-05-22 14:10 | NUR ---
ROBAXIN 750 MG,BENTYL 20 MG AND ZOFRAN 4 MG ODT FOR C/O NAUSEA,CRAMPING AND GENERALIZED LEG PAIN.
[2019-05-22 16:00] VITALS: BP 144/96
--- NOTE | 2019-05-22 16:33 | NUR ---
[place] STAFF WILL CONTACT [facility] ONCE PATIENT IS DISCHARGED FROM [facility]. PATIENT AGREES AND UNDERSTANDS HIS AFTERCARE PLAN. MANNY LUCAS B.A. BUSINESS SERVICES MANAGER
[2019-05-22 20:00] VITALS: BP 120/78
[2019-05-23] VITALS: BP 121/85
--- NOTE | 2019-05-23 02:12 | NUR ---
SLEEPING WITH EASY AND REGULAR RESPERS ON ROOM AIR. CALL LIGHT IS WITHIN REACH. CONTACTED DR. SARAH HUBBARD IN REGARDS TO PATIENT WANTING TO SHOWER BEFORE D/C IN AM. ABLE TO TAKE OFF MONITOR TO SHOWER.
--- NOTE | 2019-05-23 02:37 | NUR ---
MEDICAL SECRETARY LEADS REPLACED. PATIENT VERY DIAPHORETIC, VISIBLY WET. PRN MOTRIN AND TYLENOL GIVEN FOR BACKACHE RATING A 5/10.
--- NOTE | 2019-05-23 04:04 | NUR ---
SLEEPING WITH EASY AND REGULAR RESPERS ON ROOM AIR. VISIBLE DIAPHORESIS. CALL LIGHT IS WITHIN REACH.
--- NOTE | 2019-05-23 04:12 | NUR ---
CHART CHECK COMPLETE.
[2019-05-23 06:58] LABS: HEMATOCRIT 38.7 % (42.0-52.0); HEMOGLOBIN 12.7 g/dl (14.0-18.0); MEAN CELL VOLUME 106.3 fl (80.0-94.0); MEAN CORPUSCULAR HGB 34.9 pg (27.0-31.0); MEAN CORPUSCULAR HGB CONC 32.8 g/dl (33.0-37.0); MEAN PLATELET VOLUME 10.1 fl (9.6-12.3); PLATELET COUNT AUTOMATED 158 10*3/uL (130-400); RED BLOOD COUNT 3.64 10*6/uL (4.50-5.90); RED CELL DISTRI WIDTH 15.4 % (0-14.5); WHITE BLOOD COUNT 2.6 10*3/uL (4.8-10.8)
[2019-05-23 07:27] LABS: ALBUMIN 3.6 gm/dl (3.1-4.5); ALKALINE PHOSPHATASE 69 U/L (45-117); BUN 15 mg/dl (7-24); CHLORIDE 107 mmol/L (98-107); CREATININE 0.79 mg/dL (0.70-1.30); SGOT/AST 179 IU/L (3-35); SGPT/ALT 238 U/L (12-78); SODIUM 139 mmol/L (136-145); TOTAL PROTEIN 7.1 gm/dL (6.4-8.2)
--- NOTE | 2019-05-23 08:13 | NUR ---
MEDICATED WITH PRN PO ZOFRAN AND BENTYL FOR NAUSEA AND ABDOMINAL CRAMPS, VISTARIL FOR ANXIETY, AND ROBAXIN AND TYLENOL FOR BACK ACHES/CRAMPS.
[2019-05-23 08:15] VITALS: BP 118/78
[2019-05-23 08:17] VITALS: BP 131/95
[2019-05-23 08:20] LABS: BASOPHILS 4 % (0-1); PLATELET SUFFICIENCY NORMAL (NORMAL); TOTAL CELLS COUNTED 100 #CELLS
--- NOTE | 2019-05-23 09:51 | NUR ---
Patient resting. Responding to prn medications with fewer complaints of pain and anxiety.
--- NOTE | 2019-05-23 10:39 | NUR ---
MEDICATED WITH PRN PO MOTRIN FOR BACK PAIN.
--- NOTE | 2019-05-23 11:22 | NUR ---
Discharge instructions reviewed with patient. Patient receptive and verbalizes understanding. Follow-up care arranged. Written instructions given to patient. PATIENT AWAITING RIDE TO [facility] IN APPROXIMATELY 30 MINUTES SHARON MAIER
--- NOTE | 2019-05-23 12:50 | NUR ---
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
--- NOTE | 2019-05-23 13:45 | NUR ---
PATIENT DISCHARGED TO [facility], [facility], FOR TRANSPORT TO [facility] BY [facility].
== END 2019-05-23 13:45 | disposition home or self-care (01) | DRG 775 ==
LOC: ED 14:31 → EDHOLD 17:19 → 4E 17:19
PROVIDERS: Internal Medicine; Physician Assistant; ADMIT Family Medicine
DX: F10.120 Alcohol abuse with intoxication, uncomplicated (principal); F17.210 Nicotine dependence, cigarettes, uncomplicated; R74.0 Nonspecific elevation of levels of transaminase and lactic acid dehydrogenase [LDH]; D70.9 Neutropenia, unspecified; D53.9 Nutritional anemia, unspecified; E87.8 Other disorders of electrolyte and fluid balance, not elsewhere classified; B19.20 Unspecified viral hepatitis C without hepatic coma; R73.9 Hyperglycemia, unspecified; K21.9 Gastro-esophageal reflux disease without esophagitis; I10 Essential (primary) hypertension; Z71.6 Tobacco abuse counseling; Z91.040 Latex allergy status; Z79.899 Other long term (current) drug therapy